=== PATIENT | male | born 1960 | race Hispanic/Latino ===

== ENCOUNTER 2019-01-10 08:02 | Inpatient (IN) | payer OTHER ==
[~2019-01-10] VITALS: Ht 160 cm; Wt 79.4 kg
--- OUTSIDE RECORDS SUMMARY | 2019-01-10 08:06 | XMS REPORT | Clinical Summary ---
Author Author [facility] Organization [place] [facility] Address Unknown Phone Unavailable Care Team Providers Care Fleecer Name Role Phone Asked, No Pcp PCP Unavailable Allergies Comments Active Allergy Reactions Severity Noted Date Penicillins 01/06/2019 Medications No known medications Active Problems Not on file Encounters Care Team Description Date Type Specialty Lui Chen MD Abdominal pain, unspecified abdominal location (Primary Dx); Abnormal CT scan 01/06/2019 Emergency Emergency Medicine 01/06/2019 Travel after 01/09/2018 Social History Date Tobacco Use Types Packs/Day Years Used Never Smoker Smokeless Tobacco: Never Used Alcohol Use Drinks/Week oz/Week Comments No Former drinker. Alcohol Habits Answer Date Recorded How often do you have a drink containing alcohol? Never 01/06/2019 How many drinks containing alcohol do you have on Not asked a typical day when you are drinking? How often do you have six or more drinks on one Not asked occasion? Sex Assigned at Date Recorded Not on file Industry Job Start Date Occupation Not on file Not on file Not on file Travel End Travel History Travel Start No recent travel history available. Last Filed Vital Signs Time Taken Vital Sign Reading 01/06/2019 4:24 PM CDT Blood Pressure 121/95 01/06/2019 4:24 PM CDT Pulse 125 01/06/2019 4:24 PM CDT Temperature 36.8 C (98.2 F) 01/06/2019 4:24 PM CDT Respiratory Rate 18 01/06/2019 4:24 PM CDT Oxygen Saturation 99% - Inhaled Oxygen - Concentration 01/06/2019 9:51 AM CDT Weight 68 kg (150 lb) 01/06/2019 9:51 AM CDT Height 160 cm (5' 3") 01/06/2019 9:51 AM CDT Body Mass Index 26.57 Plan of Treatment Health Maintenance Due Date Last Done Comments COLON CANCER SCREENING 2010 SHINGLES VACCINES (#1) 2010 INFLUENZA VACCINE 05/22/2018 Procedures Comments Procedure Name Priority Date/Time Associated Diagnosis CT ABDOMEN PELVIS W STAT 01/06/2019 CONTRAST 2:13 PM CDT ESTIMATED GFR STAT 01/06/2019 10:43 AM CDT LIPASE LEVEL STAT 01/06/2019 10:43 AM CDT HEPATIC FUNCTION PANEL STAT 01/06/2019 10:43 AM CDT BASIC METABOLIC PANEL STAT 01/06/2019 10:43 AM CDT HC COMPLETE BLD COUNT STAT 01/06/2019 W/AUTO DIFF 10:43 AM CDT after 01/09/2018 Results * CT Abdomen Pelvis W Contrast (01/06/2019 2:13 PM CDT) Narrative Performed At EXAMINATION:CT ABDOMEN PELVIS W CONTRAST [facility] CLINICAL HISTORY:Abd painunspecified, Nauseavomiting TECHNIQUE: Multiple axial images of the abdomen and pelvis were obtained following intravenous administration of iodinated contrast. Sagittal and coronal computerized reformatted images were also obtained. CT imaging was performed with iterative reconstruction technique and/or automated exposure control to reduce radiation dose. COMPARISON:None. FINDINGS: 1.Visualized lung bases are clear. 2.Multiple hepatic dome masses, largest measures up to 3.6 cm, suspicious for metastatic lesions. 3.Normal gallbladder, adrenals. 4.4.2 x 4.9 cm necrotic mass extends from the pancreatic tail to the splenic hilum, favor pancreatic origin. 5.Small ascites. Some ascites along the margins of the spleen appears loculated with mild scalloping of the spleen. Stranding in the omentum, no discrete nodules but question of peritoneal metastatic disease. 6.Normal kidneys with symmetric renal enhancement. 7.Normal stomach and small bowel. Colon is within normal limits. 8.Patulous fat-containing inguinal canals. 9.The bladder is decompressed but otherwise unremarkable. Prostate is within normal limits. 10.No suspicious osseous lesion. 11.Grossly patent abdominal and pelvic vasculature. Wall calcifications in the common femoral and visualized segments of superficial femoral and femoral profunda arteries. 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 [id number] Procedure Note Hm Interface, Radiology Results Incoming - 01/06/2019 2:25 PM CDT EXAMINATION: CT ABDOMEN PELVIS W CONTRAST CLINICAL HISTORY: Abd pain unspecified, Nausea vomiting TECHNIQUE: Multiple axial images of the abdomen and pelvis were obtained following intravenous administration of iodinated contrast. Sagittal and coronal computerized reformatted images were also obtained. CT imaging was performed with iterative reconstruction technique and/or automated exposure control to reduce radiation dose. COMPARISON: None. FINDINGS: 1. Visualized lung bases are clear. 2. Multiple hepatic dome masses, largest measures up to 3.6 cm, suspicious for metastatic lesions. 3. Normal gallbladder, adrenals. 4. 4.2 x 4.9 cm necrotic mass extends from the pancreatic tail to the splenic hilum, favor pancreatic origin. 5. Small ascites. Some ascites along the margins of the spleen appears loculated with mild scalloping of the spleen. Stranding in the omentum, no discrete nodules but question of peritoneal metastatic disease. 6. Normal kidneys with symmetric renal enhancement. 7. Normal stomach and small bowel. Colon is within normal limits. 8. Patulous fat-containing inguinal canals. 9. The bladder is decompressed but otherwise unremarkable. Prostate is within normal limits. 10. No suspicious osseous lesion. 11. Grossly patent abdominal and pelvic vasculature. Wall calcifications in the common femoral and visualized segments of superficial femoral and femoral profunda arteries. 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 [facility]-[id number] Performing Organization Address City/State/Zipcode Phone Number [facility] [address] [place] [address] * Estimated GFR (01/06/2019 10:43 AM CDT) Estimated GFR 73 mL/min/1.73 m2 [facility] Comment: [facility] CatergoryUnitsInte rpretation G1 >=90 Normal or high G2 60-89Mildly decreased U1w34-13 Mildly to moderately decreased A4g03-27 Moderately to severely decreased G4 15-29Severely decreased G5 <15Kidney failure The eGFR was calculated using the Chronic Kidney Disease Epidemiology Collaboration (CKD-EPI) equation. Interpretation is based on recommendations of the National Kidney Foundation-Kidney Disease Outcomes Quality Initiative (NKF-KDOQI) published in 2014. Specimen Plasma specimen Performing Organization Address City/State/Zipcode Phone Number [facility] [address] [place] [address] PATHOLOGY AND GENOMIC MEDICINE [place] [address] [place], [place] [id number] [place] [address] * CBC with platelet and differential (01/06/2019 10:43 AM CDT) WBC 9.8 4.2 - 11.0 k/uL [facility] RBC 4.69 4.04 - 5.86 m/uL [facility] HGB 15.1 13.0 - 17.3 g/dL [facility] HCT 44.2 34.0 - 45.0 % [facility] MCV 94.2 80.0 - 98.0 fL [facility] MCH 32.2 27.0 - 34.0 pg [facility] MCHC 34.2 31.5 - 36.5 g/dL [facility] RDW - SD 38.6 37.0 - 51.0 fL [facility] MPV 9.9 7.4 - 10.4 fL [facility] Platelet count 388 150 - 400 k/uL [facility] Nucleated RBC 0.00 /100 WBC [facility] Neutrophils 75.6 (H) 36.0 - 66.0 % [facility] Lymphocytes 13.1 (L) 24.0 - 44.0 % [facility] Monocytes 9.8 (H) 0.0 - 6.0 % [facility] Eosinophils 0.9 0.0 - 6.0 % [facility] Basophils 0.3 0.0 - 1.2 % [facility] Immature granulocytes 0.3 0.0 - 1.0 % [facility] Specimen Blood Performing Organization Address City/[facility]/Zipcode Phone Number [facility] [address] [place] [address] PATHOLOGY AND GENOMIC MEDICINE [place] [address] [facility] [address] * Lipase level (01/06/2019 10:43 AM CDT) Lipase 50 13 - 60 U/L [facility] Specimen Plasma specimen Performing Organization Address City/[facility] Phone Number [facility] [address] [facility] [place] [address] PATHOLOGY AND GENOMIC MEDICINE [address] * Hepatic function panel (01/06/2019 10:43 AM CDT) Albumin 2.8 (L) 3.5 - 5.0 g/dL [facility] Total bilirubin 0.8 0.2 - 1.2 mg/dL [facility] Bilirubin direct <0.2 0.0 - 0.4 mg/dL [facility] Alkaline phosphatase 88 0 - 129 U/L [facility] Protein 7.6 6.3 - 8.3 g/dL [facility] ALT 14 5 - 50 U/L [facility] AST 21 10 - 50 U/L [facility] Specimen Plasma specimen Performing Organization Address [facility] Hospitalcode Phone Number [facility] [address] [facility] [place] [address] PATHOLOGY AND [facility] [address] * Basic metabolic panel (01/06/2019 10:43 AM CDT) Sodium 128 (L) 135 - 150 mEq/L [facility] Potassium 4.5 3.5 - 5.0 mEq/L [facility] Chloride 92 (L) 98 - 112 mEq/L [facility] CO2 23 (L) 24 - 31 mmol/L [facility] Anion gap 13@ANIO 7 - 15 mEq/L [facility] BUN 18 7 - 18 mg/dL [facility] Creatinine 1.10 0.70 - 1.20 mg/dL [facility] Glucose 364 (H) 65 - 100 mg/dL [facility] Calcium 9.0 8.3 - 10.2 mg/dL [facility] Specimen Plasma specimen Performing Organization Address City/State/Zipcode Phone Number [facility] OF [address] [place] [address] PATHOLOGY AND GENOMIC MEDICINE [facility] [address] [place], [place] [id number] [place] [address] after 01/09/2018 Insurance Payer Benefit Subscriber ID Type Phone Address Plan / Group MISC EXCHANGE AMBETTER xxxxxxxxx Exchange FROM [facility] Advance Directives Patient has advance care planning documents on file. For more information, buster rosado contact: [facility] [address] [place] [address]
[2019-01-10] MEDS ORDERED: MORPHINE SULFATE 2 MG/ML SYR 1ML IV STA (08:51)
[2019-01-10] MEDS ORDERED: ONDANSETRON HCL INJ 2MG/ML 2ML 2 MG/ML VIAL IV STA (08:51)
[2019-01-10] MEDS ORDERED: SODIUM CHLORIDE 0.9% 1000ML 1,000 ML IV SCH ×2 (09:00→10:45)
[2019-01-10] MEDS ORDERED: MORPHINE SULFATE INJ 4 MG/ML INJ 1ML IV NR (09:15)
[2019-01-10] MEDS ORDERED: DIATRIZOATE MEGL/DIATRIZOA SOD 30 ML BTL PO ONE (09:16)
[2019-01-10 09:50] LABS: BASOPHILS % 0.3 % (0.0-1.0); EOSINOPHILS # (AUTO) 0.1 (0.0-0.4); EOSINOPHILS % 0.4 % (0.0-6.0); HEMATOCRIT 43.9 % (38.2-49.6); HEMOGLOBIN 15.3 g/dL (14.0-18.0); LYMPHOCYTES # (AUTO) 1.1 (1.0-3.2); LYMPHOCYTES % 8.9 % (18.0-39.1); MEAN CORPUSCULAR HEMOGLOBIN 32.2 pg (28-32); MEAN CORPUSCULAR HGB CONC 34.9 g/dL (31-35); MEAN CORPUSCULAR VOLUME 92.4 fL (81-99); MONOCYTES # (AUTO) 1.2 (0.2-0.8); MONOCYTES % 9.8 % (4.4-11.3); NEUTROPHILS # (AUTO) 9.4 (2.1-6.9); NEUTROPHILS % 79.9 % (38.7-80.0); PLATELET COUNT 469 x10e3/uL (140-360); RED BLOOD COUNT 4.75 x10e6/uL (4.3-5.7); RED CELL DISTRIBUTION WIDTH 11.2 % (11.7-14.4)
[2019-01-10 09:56] LABS: BILIRUBIN,URINE 2+ (NEGATIVE); CLARITY,URINE SL CLOUDY (CLEAR); COLOR,URINE AMBER (YELLOW); KETONES,URINE NEGATIVE (NEGATIVE); LEUKOCYTE ESTERASE ,URINE NEGATIVE (NEGATIVE); NITRITE,URINE NEGATIVE (NEGATIVE); PROTEIN,URINE DIPSTICK 1+ (NEGATIVE); URINE UROBILINOGEN 0.2 mg/dL (0.2 - 1)
[2019-01-10 10:03] LABS: AMYLASE 55 U/L (25-125); INR 0.99; LIPASE 16 U/L (8-78); PROTHROMBIN TIME 13.6 seconds (11.9-14.5)
[2019-01-10 10:08] LABS: ALANINE AMINOTRANSFERASE 10 IU/L (0-55); ALBUMIN 2.6 g/dL (3.5-5.0); ALBUMIN/GLOBULIN RATIO 0.6 (0.8-2.0); ALKALINE PHOSPHATASE 98 IU/L (40-150); ANION GAP 15.6 mmol/L (8-16); BLOOD UREA NITROGEN 25 mg/dL (7-26); BUN/CREATININE RATIO 22 (6-25); CARBON DIOXIDE 24 mmol/L (22-29); CHLORIDE 90 mmol/L (98-107); CREATININE, SERUM 1.14 mg/dL (0.72-1.25); EST GLOMERULAR FILTRATION RATE > 60 ML/MIN (60-); GLUCOSE 266 mg/dL (74-118); POTASSIUM 5.6 mmol/L (3.5-5.1); SODIUM 124 mmol/L (136-145)
[2019-01-10 10:12] LABS: RBC,URINE 0-5 /HPF (0-5)
[2019-01-10 10:13] LABS: AMORPHOUS SEDIMENT,URINE FEW (FEW); BACTERIA,URINE MANY /HPF; EPITHELIAL CELLS,URINE MODERATE /LPF
[2019-01-10] MEDS ORDERED: SODIUM CHLORIDE 0.9% 50ML 50 ML ONE (10:55)
[2019-01-10] MEDS ORDERED: IOPAMIDOL 370 MG/ML 200 ML INFUS..BTL INJ ONE (10:55)
--- NOTE | 2019-01-10 11:19 | Diagnostic Imaging Report ---
EXAM: CT Abdomen and Pelvis WITH contrast INDICATION: Abdominal Pain COMPARISON: Outside hospital CT abdomen/pelvis 01/06/2019. TECHNIQUE: Abdomen and pelvis were scanned utilizing a multidetector helical scanner from the lung base to the pubic symphysis after administration of IV contrast. Coronal and sagittal reformations were obtained. Routine protocol was performed. Scan was performed during portal venous phase. IV CONTRAST: 100 cc of Isovue-370. COMPLICATIONS: None RADIATION DOSE: Total DLP: 542.9 MGy*cm CTDIvol has been reviewed. It is below the limits set by the Radiation Protocol Committee (RPC). FINDINGS: LINES and TUBES: None. LOWER THORAX: Coronary atherosclerosis. There is a 4 mm likely calcified nodule within the left upper lobe on series 2, image 30. Patchy dependent subsegmental atelectasis in the lower lobes. Trace left pleural effusion. Motion artifact and contrast bolus timing limits evaluation for pulmonary embolism at the lung bases. Apparent filling defect in the left lower lobe segmental pulmonary artery on series 2, image 8 is felt to be artifactual given the absence of visualization on reformats. HEPATOBILIARY: There are multiple hypodense bilateral hepatic lobe lesions. Largest hypodense mass is in the anterior hepatic dome, measuring up to 3.6 cm. Some of the lesions have a lobulated contour. Some of the lesions demonstrate likely peripheral enhancement. No biliary ductal dilation. GALLBLADDER: No radio-opaque stones or sludge. No wall thickening. SPLEEN: No splenomegaly. Extension of the pancreatic mass noted below into the splenic hilum. PANCREAS: There is a 4.9 x 4.2 x 4.5 cm (TV X AP x SI) necrotic mass, likely originating from the pancreatic tail which extends into the splenic hilum. No pancreatic ductal dilatation. ADRENALS: No adrenal nodules KIDNEYS/URETERS: Kidneys enhance symmetrically. No evidence of hydronephrosis, solid mass, or stone. GI TRACT: No evidence of wall thickening or distension. Appendix is normal. PELVIC ORGANS/BLADDER: Unremarkable. LYMPH NODES: There are bilateral anterior diaphragmatic lymph nodes, largest on the left measuring up to 0.9 cm. VESSELS: There are scattered atherosclerotic calcifications in the aorta and branch vessels. PERITONEUM / RETROPERITONEUM: Interval increase in moderate volume ascites. Ascites along the spleen appears loculated with mild splenic scalloping, unchanged. No evidence of free air. Again noted is omental stranding, suspicious for peritoneal metastatic involvement, without discrete nodularity. BONES AND SOFT TISSUES: No acute osseous abnormality. No suspicious lytic or blastic lesions. Fat-containing bilateral inguinal hernias. CONCLUSION: Similar appearance of pancreatic tail mass, suspicious for primary neoplasm with metastatic hepatic lesions, anterior diaphragmatic lymphadenopathy, and peritoneal metastases. Increasing moderate volume ascites. Motion artifact and contrast bolus timing limits evaluation for pulmonary embolism at the lung bases. Apparent filling defect in the left lower lobe segmental pulmonary artery is felt to be artifactual from volume averaging given the absence of visualization on reformats. Signed by: Dr. Prashanth Mosqueda MD on 01/10/2019 11:16 AM
[2019-01-10] MEDS ORDERED: MORPHINE SULFATE 2 MG/ML SYR 1ML IV PRN (12:15)
--- OUTSIDE RECORDS SUMMARY | 2019-01-10 12:51 | XMS REPORT ---
Author Author [facility] Address Unknown Phone Unavailable Care Team Providers Care Medical Insurance Coder Name Role Phone Ghanshyam RICKS Unavailable Unavailable Problems This patient has no known problems. Allergies, Adverse Reactions, Alerts This patient has no known allergies or adverse reactions. Medications This patient has no known medications. Results Test Description Test Time Test Comments Text Results Atomic Results Result Comments CT ABDOMEN/PELVIS W 2019-01-10 10:55:00 [place] [address] Patient Name: JANEE HAIRSTON MR #: [id number] : 1960 Age/Sex: 58/M Req #: [id number] Adm Physician: Ordered by: NICKIE RICKS MD Report #: [id number] Location: ER Room/Bed: Procedure: [id number] CT/CT ABDOMEN/PELVIS W Exam Date: 01/10/19 Exam Time: 1020 REPORT STATUS: Signed EXAM: CT Abdomen and Pelvis WITH contrast INDICATION: Abdominal Pain COMPARISON: Outside hospital CT abdomen/pelvis 01/06/2019. TECHNIQUE: Abdomen and pelvis were scanned utilizing a multidetector helical scanner from the lung base to the pubic symphysis after administration of IV contrast. Coronal and sagittal reformations were obtained. Routine protocol was performed. Scan was performed during portal venous phase. IV CONTRAST: 100 cc of Isovue-370. COMPLICATIONS: None RADIATION DOSE: Total DLP: 542.9 MGy*cm CTDIvol has been reviewed. It is below the limits set by the Radiation Protocol Committee (RPC). FINDINGS: LINES and TUBES: None. LOWER THORAX: Coronary atherosclerosis. There is a 4 mm likely calcified nodule within the left upper lobe on series 2, image 30. Patchy dependent subsegmental atelectasis in the lower lobes. Trace left pleural effusion. Motion artifact and contrast bolus timing limits evaluation for pulmonary embolism at the lung bases. Apparent filling defect in the left lower lobe segmental pulmonary artery on series 2, image 8 is felt to be artifactual given the absence of visualization on reformats. HEPATOBILIARY: There are multiple hypodense bilateral hepatic lobe lesions. Largest hypodense mass is in the anterior hepatic dome, measuring up to 3.6 cm. Some of the lesions have a lobulated contour. Some of the lesions demonstrate likely peripheral enhancement. No biliary ductal dilation. GALLBLADDER: No radio-opaque stones or sludge. No wall thickening. SPLEEN: No splenomegaly. Extension of the pancreatic mass noted below into the splenic hilum. PANCREAS: There is a 4.9 x 4.2 x 4.5 cm (TV X AP x SI) necrotic mass, likely originating from the pancreatic tail which extends into the splenic hilum. No pancreatic ductal dilatation. ADRENALS: No adrenal nodules KIDNEYS/URETERS: Kidneys enhance symmetrically. No evidence of hydronephrosis, solid mass, or stone. GI TRACT: No evidence of wall thickening or distension. Appendix is normal. PELVIC ORGANS/BLADDER: Unremarkable. LYMPH NODES: There are bilateral anterior diaphragmatic lymph nodes, largest on the left measuring up to 0.9 cm. VESSELS: There are scattered atherosclerotic calcifications in the aorta and branch vessels. PERITONEUM / RETROPERITONEUM: Interval increase in moderate volume ascites. Ascites along the spleen appears loculated with mild splenic scalloping, unchanged. No evidence of free air. Again noted is omental stranding, suspicious for peritoneal metastatic involve ment, without discrete nodularity. BONES AND SOFT TISSUES: No acute osseous abnormality. No suspicious lytic or blastic lesions. Fat-containing bilateral inguinal hernias. CONCLUSION: Similar appearance of pancreatic tail mass, suspicious for primary neoplasm with metastatic hepatic lesions, anterior diaphragmatic lymphadenopathy, and peritoneal metastases. Increasing moderate volume ascites. Motion artifact and contrast bolus timing limits evaluation for pulmonary embolism at the lung bases. Apparent filling defect in the left lower lobe segmental pulmonary artery is felt to be artifactual from volume averaging given the absence of visualization on reformats. Signed by: Dr. Magda Jimenez MD on 01/10/2019 11:16 AM Dictated By: MAGDA JIMENEZ MD [id number] Transcribed By: BRII on 01/10/19 111 COPY TO: NICKIE RICKS MD
--- OUTSIDE RECORDS SUMMARY | 2019-01-10 12:51 | XMS REPORT | Clinical Summary ---
Author Author [facility] [facility] Address Unknown Phone Unavailable Care Team Providers Care Legal Word Processor Name Role Phone Asked, No Pcp PCP [...] the liver and question of peritoneal disease. [id number] Procedure Note Hm Interface, Radiology Results Incoming [...] the liver and question of peritoneal disease. [facility]-[id number] Performing Organization Address City/State/Zipcode Phone Number [facility] [address] [place] [address] * Estimated GFR (01/06/2019 10:43 AM CDT) Estimated GFR 73 mL/min/1.73 m2 [facility] Comment: [facility] CatergoryUnitsInte rpretation G1 >=90 Normal or high G2 60-89Mildly decreased D8w08-43 Mildly to moderately decreased A5p91-35 Moderately to severely decreased G4 15-29Severely decreased G5 <15Kidney failure The eGFR was calculated using the Chronic Kidney Disease Epidemiology Collaboration (CKD-EPI) equation. Interpretation is based on recommendations of the National Kidney Foundation-Kidney Disease Outcomes Quality Initiative (NKF-KDOQI) published in 2014. Specimen Plasma specimen Performing Organization Address City/State/Zipcode Phone Number [facility] [address] [place] [address] PATHOLOGY AND GENOMIC MEDICINE [place] [address] [place], [place] [phone] [place] [address] * CBC with platelet and differential (01/06/2019 10:43 AM CDT) WBC 9.8 4.2 - 11.0 k/uL [facility] RBC 4.69 4.04 - 5.86 m/uL [facility] HGB 15.1 13.0 - 17.3 g/dL [facility] HCT 44.2 34.0 - 45.0 % [facility] MCV 94.2 80.0 - 98.0 fL [facility] MCH 32.2 27.0 - 34.0 pg [facility] MCHC 34.2 31.5 - 36.5 g/dL [facility] RDW - SD 38.6 37.0 - 51.0 fL [facility] MPV 9.9 7.4 - 10.4 fL [facility] Platelet count 388 150 - 400 k/uL [facility] Nucleated RBC 0.00 /100 WBC [facility] Neutrophils 75.6 (H) 36.0 - 66.0 % [facility] Lymphocytes 13.1 (L) 24.0 - 44.0 % [facility] Monocytes 9.8 (H) 0.0 - 6.0 % [facility] Eosinophils 0.9 0.0 - 6.0 % [facility] Basophils 0.3 0.0 - 1.2 % [facility] Immature granulocytes 0.3 0.0 - 1.0 % [facility] Specimen Blood Performing Organization Address City/[facility]/Zipcode Phone Number [facility] [address] [place] [address] PATHOLOGY AND GENOMIC MEDICINE [place] [address] [facility] [address] * Lipase level (01/06/2019 10:43 AM CDT) Lipase 50 13 - 60 U/L [facility] Specimen Plasma specimen Performing Organization Address City/[facility] Phone Number [facility] [address] [facility] [place] [address] PATHOLOGY AND GENOMIC MEDICINE [address] [place] * Hepatic function panel (01/06/2019 10:43 AM CDT) Albumin 2.8 (L) 3.5 - 5.0 g/dL [facility] Total bilirubin 0.8 0.2 - 1.2 mg/dL [facility] Bilirubin direct <0.2 0.0 - 0.4 mg/dL [facility] Alkaline phosphatase 88 0 - 129 U/L [facility] Protein 7.6 6.3 - 8.3 g/dL [facility] ALT 14 5 - 50 U/L [facility] AST 21 10 - 50 U/L [facility] Specimen Plasma specimen Performing Organization Address [facility] Phone Number [facility] [address] [facility] [place] [address] PATHOLOGY AND [facility] MEDICINE [address] * Basic metabolic panel (01/06/2019 10:43 AM CDT) Sodium 128 (L) 135 - 150 mEq/L [facility] Potassium 4.5 3.5 - 5.0 mEq/L [facility] Chloride 92 (L) 98 - 112 mEq/L [facility] CO2 23 (L) 24 - 31 mmol/L [facility] Anion gap 13@ANIO 7 - 15 mEq/L [facility] BUN 18 7 - 18 mg/dL [facility] Creatinine 1.10 0.70 - 1.20 mg/dL [facility] Glucose 364 (H) 65 - 100 mg/dL [facility] Calcium 9.0 8.3 - 10.2 mg/dL [facility] Specimen Plasma specimen Performing Organization Address City/State/Zipcode Phone Number [facility] [address] [place] [address] PATHOLOGY AND GENOMIC MEDICINE [facility] [address] [place], [place] [id number] [place] [address] after 01/09/2018 Insurance Payer Benefit Subscriber ID Type Phone Address Plan / Group MISC EXCHANGE AMBETTER xxxxxxxxx Exchange FROM [facility] Advance Directives Patient has advance care planning documents on file. For more information, buster rosado contact: [facility] [address] [place] [address]
--- NOTE | 2019-01-10 13:08 | Diagnostic Imaging Report ---
EXAM: CHEST SINGLE (PORTABLE) DATE: 01/10/2019 11:13 AM INDICATION: Abdominal pain COMPARISON: None FINDINGS: Lines and tubes: None Cardiac silhouette is slightly prominent, accentuated by portable technique and low lung volumes. There is linear atelectasis in the right lower lobe and patchy atelectasis in the left lung base. No other focal pulmonary opacity or pleural effusion or pneumothorax. A small calcified granuloma is seen in the left lower lobe. Upper abdomen unremarkable. No acute bony abnormality. IMPRESSION: Bilateral linear and patchy lower lobe atelectasis with low lung volumes. Signed by: Dr. Cameron Leo M.D. on 01/10/2019 1:05 PM
[2019-01-10] MEDS: ONDANSETRON HCL INJ 2MG/ML 2ML 2 MG/ML VIAL IV PRN ×3 (13:22→21:49)
[2019-01-10] MEDS: SODIUM CHLORIDE 0.9% 1000ML 1,000 ML IV SCH ×2 (13:22→20:44)
[2019-01-10] MEDS: MORPHINE SULFATE INJ 4 MG/ML INJ 1ML IV PRN ×3 (13:22→21:49)
[2019-01-10 13:30] LABS: CREATINE KINASE MB 0.8 ng/mL (0-5.0)
[2019-01-10] MEDS ORDERED: FUROSEMIDE INJ 10 MG/ML 4 ML VIAL IV ONE (13:45)
[2019-01-10] MEDS ORDERED: DEXTROSE 50% SYRINGE 50 ML IV PRN (13:45)
[2019-01-10 13:55] LABS: ALBUMIN 2.7 g/dL (3.5-5.0); BILIRUBIN,DIRECT 0.4 mg/dL (0.0-0.5)
[2019-01-10 14:00] VITALS: BP 123/96
--- NOTE | 2019-01-10 14:00 | NUR ---
PATIENT RECEIVED FROM ER PER STRETCHER. ALERT AND VERBALLY RESPONSIVE. ABLE TO TRANSFER SELF FROM STRETCHER TO BED. SKIN WARM AND DRY TO TOUCH, RESPIRATION EVEN AND UNLABORED. ABDOMEN, LARGE, ROUND, AND DISTENDED. DENIED PAIN AT THIS TIME. YELLOW SOCKS APPLIED, ALL PERSONAL ITEMS CLOSE TO PATIENT. ORIENTED TO SURROUNDINGS, BED IN LOWER POSITION, CALL LIGHT AT REACH. INSTRUCTED TO CALL FOR ASSISTANCE NEEDED. FAMILY AT BED SIDE.
[2019-01-10 15:40] VITALS: BP 123/96
[2019-01-10] MEDS: INSULIN REGULAR, HUMAN 100 UNIT/1 ML 3ML VIAL SQ SCH ×2 (16:30→20:43)
--- NOTE | 2019-01-10 18:06 | NUR ---
PATIENT C/O CONSTIPATION, PRUNE JUICE GIVEN. PATIENT HAD A LARGE BM AND STATED "I AM FEELING BETTER".
[2019-01-10 18:34] LABS: CREATINE KINASE MB 1.2 ng/mL (0-5.0)
--- NOTE | 2019-01-10 19:00 | NUR ---
patient received awake, alert, lying quietly in bed. no c/o pain noted. ivf continue to infuse without difficulty. pm assessment complete. family noted at the bedside. patient/family instructed to call for assistance when needed.
[2019-01-10 20:00] VITALS: BP 125/96
[2019-01-10 20:43] VITALS: BP 125/96
--- NOTE | 2019-01-10 20:59 | NUR ---
bp 125/96 Bj notified. ivf decreased to 75 cc hr. no further orders noted.
[2019-01-11] VITALS (7 sets, daily range): BP systolic 115–128; BP diastolic 87–97
[2019-01-11] MEDS: MORPHINE SULFATE INJ 4 MG/ML INJ 1ML IV PRN ×4 (01:46→17:30)
[2019-01-11] MEDS: ONDANSETRON HCL INJ 2MG/ML 2ML 2 MG/ML VIAL IV PRN ×4 (01:46→17:30)
--- NOTE | 2019-01-11 01:46 | NUR ---
patient medicated with morphine 4 mg and zofran 4 mg ivp for c/o pain and nausa at this time. blood collected for #3 set of cardiac markers and sent to lab. family remains at the bedside.
[2019-01-11 04:15] LABS: CREATINE KINASE MB 1.5 ng/mL (0-5.0)
[2019-01-11 06:22] LABS: BASOPHILS % 0.3 % (0.0-1.0); EOSINOPHILS # (AUTO) 0.1 (0.0-0.4); HEMATOCRIT 42.1 % (38.2-49.6); HEMOGLOBIN 14.4 g/dL (14.0-18.0); LYMPHOCYTES # (AUTO) 1.4 (1.0-3.2); LYMPHOCYTES % 10.8 % (18.0-39.1); MEAN CORPUSCULAR HEMOGLOBIN 31.7 pg (28-32); MEAN CORPUSCULAR HGB CONC 34.2 g/dL (31-35); MEAN CORPUSCULAR VOLUME 92.7 fL (81-99); MONOCYTES # (AUTO) 1.5 (0.2-0.8); MONOCYTES % 11.1 % (4.4-11.3); NEUTROPHILS # (AUTO) 10.1 (2.1-6.9); NEUTROPHILS % 76.3 % (38.7-80.0); PLATELET COUNT 469 x10e3/uL (140-360); RED BLOOD COUNT 4.54 x10e6/uL (4.3-5.7); RED CELL DISTRIBUTION WIDTH 11.3 % (11.7-14.4)
[2019-01-11 06:43] LABS: ANION GAP 14.9 mmol/L (8-16); CALCIUM 9.3 mg/dL (8.4-10.2); CREATININE, SERUM 1.24 mg/dL (0.72-1.25); MAGNESIUM 2.3 MG/DL (1.3-2.1); PHOSPHORUS 5.1 MG/DL (2.3-4.7); POTASSIUM 4.9 mmol/L (3.5-5.1)
--- NOTE | 2019-01-11 06:56 | Diagnostic Imaging Report ---
Examination: Single AP view of the chest. COMPARISON: Portable chest 01/10/2019 INDICATION: Shortness of breath IMPRESSION: 1. No interval change in hypoinflated lungs and bibasilar atelectatic changes. Questionable small bilateral pleural effusions. Signed by: Dr. Eliot Rincon M.D. on 01/11/2019 6:53 AM
--- NOTE | 2019-01-11 07:10 | NUR ---
PATIENT IN BED RESTING WITH NO S/S OF DISCOMFORT. BED IN LOWER POSITION, CALL LIGHT AT REACH.
[2019-01-11] MEDS: INSULIN REGULAR, HUMAN 100 UNIT/1 ML 3ML VIAL SQ SCH ×4 (07:30→20:19)
[2019-01-11] MEDS: SODIUM CHLORIDE 0.9% 1000ML 1,000 ML IV SCH (11:00)
[2019-01-11] MEDS ORDERED: CEFTRIAXONE SOD 1 GM VIAL IV SCH (11:45)
[2019-01-11] MEDS ORDERED: ACETAMINOPHEN 325 MG TAB PO PRN (12:15)
[2019-01-11] MEDS ORDERED: LORAZEPAM INJ 2 MG/ML VIAL IV PRN (12:15)
[2019-01-11] MEDS ORDERED: HYDRALAZINE HCL 20 MG/ML VIAL IV PRN (12:15)
[2019-01-11] MEDS: CEFTRIAXONE SOD 1 GM/NS 50 ML 50 ML IV SCH (12:24)
[2019-01-11] MEDS: FUROSEMIDE INJ 10 MG/ML 4 ML VIAL IV SCH ×2 (12:24→17:36)
--- NOTE | 2019-01-11 15:55 | NUR ---
PATIENT SITTING UP IN BED TALKING TO FAMILY MEMBERS VISITING. NO COMPLAIN VOICED. CALL LIGHT AT REACH.
[2019-01-11] MEDS: FAMOTIDINE 20 MG/2 ML VIAL IV SCH (16:30)
--- NOTE | 2019-01-11 17:33 | Consultation ---
DATE OF CONSULTATION: 01/11/2019 Nephrology Consultation Note REASON FOR CONSULTATION: Hyponatremia. HISTORY OF PRESENT ILLNESS: This is a 58-year-old male with no history of alcohol abuse in the past in which he reports that he quit alcohol about two months ago, recently diagnosed with a pancreatic mass a few weeks ago at [facility] after a CT scan, comes back to the ED with complaints of nausea, vomiting, abdominal pain, and tense ascites. The patient was evaluated at bedside, currently complaining of abdominal pain. He does have tense ascites on examination. His CT scan is for pancreatic mass. He has been seeing Hematology-Oncology as an outpatient and has been consulted while here. Nephrology was consulted for underlying hyponatremia. The patient was found to have a sodium level of 124, currently it is 126. In reviewing his home medications, he is currently not taking anything at home, less likely to cause his underlying hyponatremia, but he does have a pancreatic mass which could be a contributing factor. Also, the patient is a chronic alcohol abuser, beer potomania, as well as decreased electrolytes leading to hyponatremia. be from volume overload as well. The patient was evaluated at bedside, currently doing well with no other issues at this time. REVIEW OF SYSTEMS: Pertinent positives: Abdominal pain, ascites, nausea, vomiting. Pertinent negatives: Denies any chest pain, palpitation, dysuria, hematuria, frequency, urgency, lightheadedness, dizziness, cough, congestion, fever, or any other complaints. Rest of 14-point review of systems are reviewed with the patient and is negative. ALLERGIES: PENICILLIN. HOME MEDICATIONS: None. PAST MEDICAL HISTORY: Recent pancreatic mass diagnosed several weeks ago, alcoholic, and has ascites. PAST SURGICAL HISTORY: None. FAMILY HISTORY: Hypertension, diabetes. SOCIAL HISTORY: He is a chronic drinker, quit two months ago. He is a smoker. No drugs. He is and has children. PHYSICAL EXAMINATION: VITAL SIGNS: Temperature 98, pulse 111, respiratory rate 20, blood pressure 115/88, pulse ox on 94% on room air. GENERAL: No acute distress. Alert and oriented x3. Cooperative on examination. HEENT: Head is normocephalic, atraumatic. Eyes; pupils equal, round and reactive to light bilaterally. Extraocular movements are intact bilaterally. Throat; no evidence of erythema or exudates in the posterior pharynx. Has poor dentition. NECK: Supple. Good range of motion throughout. PULMONARY: Clear to auscultation bilaterally. No wheezing. No rales. No rhonchi. No crackles. CARDIOVASCULAR: Positive S1, S2. No murmurs, rubs, or gallops appreciated. ABDOMEN: Soft, very distended, nontender to palpation. Bowel sounds are present. It is tense. MUSCULOSKELETAL: Strength is 5/5 throughout. . NEUROLOGIC: Cranial nerves II through XII are grossly intact. No evidence of any neurological deficits on exam. SKIN: Intact. Warm to touch. Good cap refill. PSYCHIATRIC: Normal mood and affect. EXTREMITIES: No edema. Good range of motion throughout. LAB FINDINGS: Show white count of 13, hemoglobin 14, hematocrit 42, and platelets of 469. Coagulation; PT 13, INR 0.99. D-dimer was none reported. Chemistries; sodium 126, potassium 4.9, chloride is 94, bicarb 22, anion gap of 14, BUN 29, creatinine is 1.24, and glucose is 189. His phosphorus is 5.1. His magnesium is 2.3. His troponins were all negative. Urinalysis is concerning for UTI. MICROBIOLOGY: Blood cultures negative. Urine culture are pending. IMAGING STUDY: CT abdomen and pelvis is consistent with the pancreatic mass with some lymphadenopathy seen. He does have a significant amount of ascites. Chest x-ray negative. IMPRESSION: 1. Hyponatremia, could be secondary to beer potomania and electrolyte abnormalities and also could be from underlying malignancy. 2. Abdominal pain with tense ascites, likely to be from malignancy. 3. Concern for pancreatic cancer with a pancreatic mass seen on CT. 4. Chronic alcohol abuse. Concern for underlying beer potomania. PLAN: At this time, from a renal standpoint, we will get urine sodium, urine osmolality, serum osmolality. Repeat sodium level at 1700 hours. Lasix has been started due to the tense ascites, which could also contribute an elevated sodium level. We will continue with same plan of care and monitor very closely. From the renal standpoint, we will try to slowly correct the sodium level. I discussed this with the primary team as well. I also told the nurse to call me at with a sodium level to determine if I need to give salt tabs as well. We are also considering giving increased Lasix dose. Thank you too much for this consultation. We will continue to follow with you. MD KENDRA Cisneros/AJNNY /[id number]
--- NOTE | 2019-01-11 18:17 | NUR ---
CASE MANAGEMENT INITIAL ASSESSMENT [facility] Supervisor to bedside to discuss plan of care with patient/family. CM/SW role and care transitions discussed. Anticipated discharge plan discussed along with duration of care. CM/SW discussed patients right to make decisions in care. CM/SW work hours given. Patient lives: Admit/Transfer: ER Hospital/ER visits since last admit:0 POA/Emergency contact: NOLA CORTÉS [phone] Current/Previous Home Health: NONE PCP/Follow-up Care: DR SEVILLA Current/Previous DME: NONE Medications (referring to index hospitalization or the first time you were in the hospital) a. Were changes made in your medications when you were in the hospital on [date of index hospitalization]? Yes No Not sure Explain: Note: If no or not sure, please skip to question d b. Did you understand the changes? Yes No Explain: c. Were you able to obtain your new medications right away? Yes No n/a SNF only Explain: d. Were you able to take your medications like the doctor wanted you to? Yes No Explain: e. Did the hospital give you an accurate, easy to understand list of medications when you left? Yes No n/a SNF only Explain: Scale of 1-10 how comfortable does patient feel with disease management in outpatient settin-3 (SUSPECTING DIAGNOSIS OF CANCER) Other Services: NONE Employment Status: [employer] Areas of Concerns: MISSING WORK Referral Needs: TO BE DETERMINED Education Needs: PENDING DIAGNOSIS IMM/SANCHEZ given and signed (if applicable): N/A Goal for discharge:TO DC HOME WITH FAMILY CM/SW left business card at the bedside with contact information. Name and number was also written on the patients whiteboard. Patient verbalized understanding of discussion. CM will follow-up with ongoing discharge and transition of care needs.
--- NOTE | 2019-01-11 19:15 | NUR ---
patient received awake, alert, lying quietly in bed. respirations even and unlabored. no c/o pain noted. ivf continue to infuse without difficulty. pm assessment complete. family noted at the bedside. patient/family instructed to call for assistance when needed.
--- NOTE | 2019-01-11 19:20 | NUR ---
D Dimer 6.44 called to Rae at this time. stat cta chest ordered.
[2019-01-11] MEDS ORDERED: SODIUM CHLORIDE 1 GM TAB PO ONE (20:00)
--- NOTE | 2019-01-11 20:27 | NUR ---
patient medicated with ativan 0.5 mg ivp for c/o anxiety at this time.
--- NOTE | 2019-01-11 20:29 | Diagnostic Imaging Report ---
EXAMINATION: CT of the chest with contrast, PE protocol. TECHNIQUE: Spiral CT images of the chest were performed from the lung apices through the level of the adrenal glands after the IV administration of 100 cc of Isovue 370. Thin section reconstructions were obtained with special concentration on the pulmonary arteries. COMPARISON: CT abdomen and pelvis 01/10/2019, portable chest 01/11/2019 CLINICAL HISTORY:Elevated d-dimer DISCUSSION: Lungs: No filling defects are identified in the main, right or left pulmonary arteries to their segmental levels, to suggest pulmonary embolism. Interval worsening of bilateral posterior lower lung consolidations with air bronchograms, likely representing atelectatic changes. Stable atelectatic changes in the lingula, right middle lobe is present with atelectatic changes secondary to bilateral eventration of the hemidiaphragms. Stable linear subsegmental atelectasis in the right upper lobe against the minor fissure (series 3, image 35 and sagittal image 30). Calcified granuloma in the lateral left upper lobe. Mildly increased attenuation of the pulmonary parenchyma in the upper lungs (for example series 3, image 27), which are likely secondary to suboptimal inspiration. No pulmonary nodules. Airways: Major airways are clear, without any loculations Pleura: Interval worsening of small bilateral pleural effusions, left greater than right. Heart and mediastinum: Heart size is normal. No pericardial effusion. Ectasia of the ascending aorta, which measures approximately 4.0 x 4.1 cm (series 2, image 38). Main pulmonary artery is normal in caliber. Lymph nodes: No mediastinal, hilar or axillary adenopathy. Abdomen: The visualized portions of the upper abdomen show moderate to large ascites, no change in multiple hypodense lesions in the liver consistent with metastatic disease. An ill-defined 4.9 x 3.5 cm hypodense lesion at the pancreatic tail/ splenic hilum was better visualized on contrast-enhanced CT dated 01/10/2019. Bones and soft tissues: No acute bony abnormalities. Degenerative disc changes in the thoracic spine. IMPRESSION: 1. No CT evidence of pulmonary embolism. 2. Interval worsening of small bilateral pleural effusions, left greater than right. Interval worsening of bilateral posterior lower lung consolidation with air bronchograms, likely representing associated atelectatic changes. Superimposed pneumonia could be considered, in the appropriate clinical setting. 3. Abdominal findings are essentially stable. Please refer to CT abdomen and pelvis with contrast performed 01/10/2019 for further detail. Signed by: Dr. Eliot Rincon M.D. on 01/11/2019 8:25 PM
--- NOTE | 2019-01-11 20:38 | NUR ---
chest cta called to Dr. García at this time. no evidence of PE noted.
[2019-01-11] MEDS: METOPROLOL TARTRATE INJ 1 MG/ML VIAL IV PRN ×2 (22:23→22:47)
--- NOTE | 2019-01-11 22:47 | NUR ---
iv to left ac leaking. iv d/c'd and clean dry dressing applied to site. new #22 gauge placed to left hand x 1 stick. ivf continue to infuse without difficulty.
[2019-01-11] MEDS ORDERED: SODIUM CHLORIDE 0.9% 50ML 50 ML ONE (23:09)
[2019-01-11] MEDS ORDERED: IOPAMIDOL 370 MG/ML 200 ML INFUS..BTL INJ ONE (23:09)
[2019-01-12] VITALS (9 sets, daily range): BP systolic 108–123; BP diastolic 80–98
[2019-01-12] MEDS: ONDANSETRON HCL INJ 2MG/ML 2ML 2 MG/ML VIAL IV PRN ×5 (01:52→23:55)
[2019-01-12] MEDS: MORPHINE SULFATE INJ 4 MG/ML INJ 1ML IV PRN ×5 (01:52→23:55)
[2019-01-12] MEDS: SODIUM CHLORIDE 0.9% 1000ML 1,000 ML IV SCH (02:50)
[2019-01-12 03:21] LABS: BASOPHILS % 0.3 % (0.0-1.0); EOSINOPHILS % 0.2 % (0.0-6.0); HEMATOCRIT 40.7 % (38.2-49.6); HEMOGLOBIN 13.8 g/dL (14.0-18.0); LYMPHOCYTES % 7.6 % (18.0-39.1); MEAN CORPUSCULAR HEMOGLOBIN 31.2 pg (28-32); MEAN CORPUSCULAR HGB CONC 33.9 g/dL (31-35); MEAN CORPUSCULAR VOLUME 92.1 fL (81-99); MONOCYTES # (AUTO) 1.3 (0.2-0.8); NEUTROPHILS # (AUTO) 10.6 (2.1-6.9); NEUTROPHILS % 81.2 % (38.7-80.0); PLATELET COUNT 452 x10e3/uL (140-360); RED BLOOD COUNT 4.42 x10e6/uL (4.3-5.7); RED CELL DISTRIBUTION WIDTH 11.4 % (11.7-14.4)
[2019-01-12 03:38] LABS: ALBUMIN 2.2 g/dL (3.5-5.0); ANION GAP 15.2 mmol/L (8-16); BILIRUBIN,DIRECT 0.5 mg/dL (0.0-0.5); CREATININE, SERUM 1.46 mg/dL (0.72-1.25); MAGNESIUM 2.2 MG/DL (1.3-2.1); POTASSIUM 5.2 mmol/L (3.5-5.1)
[2019-01-12 04:00] LABS: FREE T4 (FREE THYROXINE) 1.11 ng/dL (0.9-1.8); THYROID STIMULATING HORMONE 4.705 uIU/mL (0.350-4.940)
[2019-01-12 04:03] LABS: B-TYPE NATRIURETIC PEPTIDE2 68.1 pg/mL (0-100)
--- NOTE | 2019-01-12 07:05 | NUR ---
PATIENT ASSISTED TO THE RESTROOM AND BACK TO BED. ALL PERSONAL ITEMS CLOSE TO PATIENT . BED IN LOWER POSITION, CALL LIGHT AT REACH.
[2019-01-12] MEDS: INSULIN REGULAR, HUMAN 100 UNIT/1 ML 3ML VIAL SQ SCH ×4 (07:30→20:20)
[2019-01-12] MEDS: FAMOTIDINE 20 MG/2 ML VIAL IV SCH ×2 (07:59→16:30)
[2019-01-12] MEDS: FUROSEMIDE INJ 10 MG/ML 4 ML VIAL IV SCH ×4 (09:13→20:20)
[2019-01-12] MEDS ORDERED: FUROSEMIDE INJ 10 MG/ML 4 ML VIAL IV NR (09:15)
[2019-01-12] MEDS: METOPROLOL TARTRATE INJ 1 MG/ML VIAL IV PRN ×2 (09:41→20:20)
[2019-01-12] MEDS: SODIUM CHLORIDE 1 GM TAB PO SCH ×2 (11:00→17:36)
[2019-01-12 11:29] LABS: BILIRUBIN,URINE NEGATIVE (NEGATIVE); CLARITY,URINE CLEAR (CLEAR); COLOR,URINE YELLOW (YELLOW); KETONES,URINE NEGATIVE (NEGATIVE); LEUKOCYTE ESTERASE ,URINE NEGATIVE (NEGATIVE); NITRITE,URINE NEGATIVE (NEGATIVE); PROTEIN,URINE DIPSTICK TRACE (NEGATIVE); URINE UROBILINOGEN 0.2 mg/dL (0.2 - 1)
--- NOTE | 2019-01-12 11:58 | NUR ---
PATIENT ON 1200CC FLUID RESTRICTION. MEASUREMENT CUP PROVIDED. IN BED WITH CALL LIGHT AT REACH.
--- NOTE | 2019-01-12 12:22 | Progress Note ---
DATE: 01/12/2019 Nephrology Progress Note SUBJECTIVE: The patient still has a tense abdomen, will need paracentesis tomorrow. His sodium only barely deonte to 125. He was started on saline last night. PHYSICAL EXAMINATION: VITAL SIGNS: Temperature is 95.4, pulse is 119, respiratory rate is 22, blood pressure is 119/89, pulse ox is 97% on room air. GENERAL: No acute distress. Alert and oriented x3. Cooperative on examination. HEENT: Head is normocephalic and atraumatic. Eyes; pupils are equal, round, and reactive to light bilaterally. Extraocular movements are intact bilaterally. Throat, no evidence of erythema or exudates in the posterior pharynx. Has poor dentition. NECK: Supple. Good range of motion. PULMONARY: Clear to auscultation bilaterally. No wheezing, no rales, no rhonchi, no crackles appreciated. CARDIOVASCULAR: Positive S1, S2. No murmurs, rubs, or gallops appreciated. ABDOMEN: nontender to palpation. Bowel sounds present. MUSCULOSKELETAL: Strength is 5/5 throughout. No evidence of any muscle deficits on examination. No weakness appreciated. NEUROLOGICAL: Cranial nerves II through XII grossly intact. No evidence of any neurological deficits on exam. SKIN: Intact. Warm to touch. Good cap refill. PSYCHIATRIC: Normal affect and mood. EXTREMITIES: He has trace to 1+ pedal edema. Good range of motion throughout. LAB FINDINGS: Show white count 12.9, hemoglobin 13.2, hematocrit 41, platelets of 452. Chemistry; sodium is 125, potassium is 5.2, chloride 96, bicarb 19, anion gap of 15, BUN 32, creatinine is 1.46, glucose is 185, magnesium is 2.2, calcium is 9. MICROBIOLOGY: Blood cultures are no growth. Sputum cultures are pending. IMAGING STUDIES: There was a CT chest last night with IV contrast, PE protocol. No evidence of pulmonary embolism. Interval worsening of , left greater than right. Interval worsening of bilateral posterior lower lung consolidation pneumonia could be considered. IMPRESSION: 1. Hyponatremia, multifactorial from hypervolemia, beer potomania and possibility of one live malignancy. 2. Abdominal pain with tense ascites, likely to be from malignancy. 3. Acute kidney injury, likely from intraabdominal pressure leading to the rise in creatinine. 4. Concern for pancreatic cancer with a pancreatic mass seen on CT. 5. Chronic alcohol abuse. Concern for beer potomania. PLAN: At this time, his urine studies have not been performed. His urine sodium, urine osmolality, serum osmolality are pending. We will get sodium level at 1700 hours later today. Start on sodium chloride tabs 2 g p.o. b.i.d. x3 doses. Stop normal saline and Lasix due to tense ascites. He will need paracentesis tomorrow. Discussed with nurse to call me today at 1700 hours with sodium level to monitor closely. We will also put volume restriction at 1.2 L total in a day. MD KENDRA Cisneros/MODL /[id number]
[2019-01-12] MEDS: CEFTRIAXONE SOD 1 GM/NS 50 ML 50 ML IV SCH (12:34)
[2019-01-12 12:52] LABS: AMORPHOUS SEDIMENT,URINE MODERATE (FEW); BACTERIA,URINE FEW /HPF; EPITHELIAL CELLS,URINE MODERATE /LPF; MUCUS,URINE FEW (RARE); WBC,URINE (MAN) 0-5 /HPF (0-5)
[2019-01-12 15:40] LABS: ANION GAP 15.2 mmol/L (8-16); CALCIUM 9.1 mg/dL (8.4-10.2); CREATININE, SERUM 1.66 mg/dL (0.72-1.25); POTASSIUM 5.2 mmol/L (3.5-5.1)
--- NOTE | 2019-01-12 16:21 | NUR ---
PATIENT OUT OF BED TO CHAIR TALKING TO FAMILY MEMBER VISITING. CALL LIGHT AT EASY REACH.
--- NOTE | 2019-01-12 17:55 | NUR ---
NOTIFIED OF SODIUM LEVEL, NO NEW ORDER RECEIVED.
--- NOTE | 2019-01-12 18:50 | NUR ---
patient received awake, alert, lying quietly in bed. no c/o pain noted. pm assessment complete. many family members at the bedside. patient/family instructed to call for assistance when needed.
--- NOTE | 2019-01-12 19:15 | NUR ---
patient medicated with morphine 4 mg and zofran 4 mg ivp for abd pain /10 at this time.
--- NOTE | 2019-01-12 21:25 | NUR ---
patient npo after mn for paracentesis and pancreatic mass biopsy in am. consents obtained by daughter per patients request at this time. consents placed on patients chart.
--- NOTE | 2019-01-12 22:24 | NUR ---
patient c/o burning on urination. call placed to Dr. García but received no answer. message left but no return call noted.
--- NOTE | 2019-01-12 23:00 | NUR ---
Dr. Yevgeniy Vallecillo here to see patient. Dr. Yevgeniy Vallecillo made aware of patients burning on urination. pyridium 100 mg po ordered and first dose to be given tonight.
[2019-01-12] MEDS: PHENAZOPYRIDINE HCL 100 MG TAB PO SCH (23:13)
--- NOTE | 2019-01-12 23:55 | NUR ---
patient medicated with morphine 4 mg and zofran 4 mg ivp for c/o abd pain 05/31 at this time.
[2019-01-13] VITALS: BP 128/79
--- NOTE | 2019-01-13 01:00 | NUR ---
return call received from Rae Benitez at this time re: message left earlier about patients c/o burning on urination. order received to recollect urine for ua and culture.
[2019-01-13 04:00] VITALS: BP 114/88
[2019-01-13] MEDS: MORPHINE SULFATE INJ 4 MG/ML INJ 1ML IV PRN ×4 (05:54→23:05)
[2019-01-13] MEDS: ONDANSETRON HCL INJ 2MG/ML 2ML 2 MG/ML VIAL IV PRN ×2 (05:54→23:05)
--- NOTE | 2019-01-13 05:54 | NUR ---
patient oob to shower with assistance and back to bed without difficulty. patient medicated with morphine 4 mg and zofran 4 mg ivp for c/o abd pain 8/ at this time. family remains at the bedside.
[2019-01-13 07:25] VITALS: BP 115/77
[2019-01-13] MEDS: INSULIN REGULAR, HUMAN 100 UNIT/1 ML 3ML VIAL SQ SCH ×4 (07:30→20:43)
--- NOTE | 2019-01-13 07:30 | NUR ---
PT UP IN BED RESTING NO DISTRESS NTOED,DENIES PAIN AT THIS TIME.RADIOLOGY CALLED STATED UNABLE TO DO PANCREAS BIOPSY REQUESTING BIOPSY OF LIVER,SPOKE WITH JULIÁN MONET .CONSENT FOR LIVER BIOPSY DONE
[2019-01-13 07:36] VITALS: BP 115/77
[2019-01-13] MEDS: FAMOTIDINE 20 MG/2 ML VIAL IV SCH ×2 (08:30→18:01)
[2019-01-13] MEDS: SODIUM CHLORIDE 1 GM TAB PO SCH (09:00)
[2019-01-13] MEDS ORDERED: SODIUM CHLORIDE 1 GM TAB PO ONE (11:15)
[2019-01-13 11:58] LABS: ANION GAP 22.2 mmol/L (8-16); CALCIUM 9.8 mg/dL (8.4-10.2); CREATININE, SERUM 1.9 mg/dL (0.72-1.25)
[2019-01-13 12:05] LABS: POTASSIUM 6.2 mmol/L (3.5-5.1)
[2019-01-13] MEDS ORDERED: FUROSEMIDE INJ 10 MG/ML 4 ML VIAL IV ONE (12:15)
[2019-01-13] MEDS ORDERED: SOD POLYSTYRENE SULFONATE SUSP 15 GM/60 ML BTL PO ONE (12:15)
[2019-01-13] MEDS: CEFTRIAXONE SOD 1 GM/NS 50 ML 50 ML IV SCH (12:22)
[2019-01-13] MEDS: PHENAZOPYRIDINE HCL 100 MG TAB PO SCH ×2 (12:38→18:01)
--- NOTE | 2019-01-13 12:45 | NUR ---
SPOKE WITH DR LEE RE;CONSULT
[2019-01-13 12:46] VITALS: BP 115/78
--- NOTE | 2019-01-13 14:15 | NUR ---
DR LEE HERE.PT VOIDED 150 CC ORANGE URINE,POST VOID RESIDUAL [id number] ,SPOKE WITH DR LEE ORDERS TO WAIT UNTIL PT HAS PARACENTSIS AND SCAN AGAIN
[2019-01-13] MEDS ORDERED: GELATIN SPONGE 12-7MM ONE (14:56)
[2019-01-13] MEDS ORDERED: FENTANYL CITRATE/PF 100MCG/2 ML INJ ONE (14:56)
[2019-01-13] MEDS ORDERED: MIDAZOLAM HCL 2 MG/2 ML VIAL ONE (14:56)
--- NOTE | 2019-01-13 15:03 | Progress Note ---
DATE: 01/13/2019 Nephrology Progress Note SUBJECTIVE: The patient is scheduled for paracentesis later today. The patient is otherwise doing well. No other issues. OBJECTIVE: VITAL SIGNS: Temperature is 96.2, pulse 113, respiratory rate 16, blood pressure 115/77, pulse ox 98% on room air. GENERAL: No acute distress. Alert and oriented x3. Cooperative on examination. HEENT: Head is normocephalic, atraumatic. Eyes, pupils are equal, round, and reactive to light bilaterally. Extraocular movements are intact bilaterally. Throat, no evidence of erythema or exudates in the posterior pharynx. Has poor dentition. NECK: Supple. Good range of motion. PULMONARY: Clear to auscultation bilaterally. No wheezing, no rales, no rhonchi, no crackles appreciated. CARDIOVASCULAR: Positive S1, S2. No murmurs, rubs, or gallops appreciated. ABDOMEN: Distended, nontender to palpation. Bowel sounds present. MUSCULOSKELETAL: Strength is 5/5 throughout. No evidence of any muscle deficits on examination. No weakness appreciated. NEUROLOGICAL: Cranial nerves II through XII grossly intact. No evidence of any neurological deficits on exam. SKIN: Intact. Warm to touch. Good cap refill. PSYCHIATRIC: Normal affect and mood. EXTREMITIES: No edema. Good range of motion. LAB FINDINGS: There is no chemistry for today, but yesterday's sodium was 127 at 1700 hours. I ordered chemistries for this month. IMPRESSION: 1. Hyponatremia, multifactorial from hypovolemia, beer potomania and possibly from malignancy. 2. Abdominal pain with tense ascites, likely from malignancy. 3. Acute kidney injury secondary to intraabdominal pressure leading to rise in creatinine. 4. Concern for pancreatic cancer with a pancreatic mass seen on CT. 5. Chronic alcohol abuse. Concern for beer potomania. PLAN: At this time, there is no sodium level for this morning. Sodium yesterday at 1700 was 127. He is written for sodium chloride tab that was given this morning. He continues to be on diuretics as well. We did order some labs for this morning, now stat chemistry. He is scheduled to have paracentesis later today. Labs ordered for tomorrow. Continue with volume restriction at 1.2 L total. MD KENDRA Cisneros/JANNY /[id number]
--- NOTE | 2019-01-13 15:17 | NUR ---
PT TRANSPORTED TO IR VIA BED
--- NOTE | 2019-01-13 16:38 | Consultation ---
DATE OF CONSULTATION: 01/13/2019 REASON OF CONSULTATION: Pancreatic mass and liver lesion. HISTORY OF PRESENT ILLNESS: A 58-year-old male with history of chronic alcoholism, recently stopped, admitted through ED with worsening nausea, vomiting, abdominal pain, and abdominal distention. Here, recent workup shows pancreatic mass at [facility]. So far, the patient has not received any surgical intervention. At admission, the patient's CAT scan showed pancreatic tail mass suspicious of primary neoplasm with metastatic liver lesion, anterior diaphragmatic lymphadenopathy and peritoneum metastasis. The patient also has increased moderate volume ascites. The patient is being following with the Interventional Radiology, supposed to get CT-guided liver biopsy and paracentesis. PAST MEDICAL HISTORY: Include alcoholism, recently diagnosed pancreatic mass. ALLERGIES: PENICILLIN. MEDICATIONS: List reviewed. PAST SURGICAL HISTORY: None. FAMILY HISTORY: Hypertension and diabetes. SOCIAL HISTORY: Chronic drinker, recently stopped. Also smoker. No drugs. Lives with family. REVIEW OF SYSTEMS: A 12-point review as per HPI. PHYSICAL EXAMINATION: GENERAL: Alert, awake, communicative. HEENT: Normocephalic and atraumatic. Sclerae pale. Conjunctivae clear. NECK: Supple. CHEST: Decreased breath sounds in bases. ABDOMEN: Distended. EXTREMITIES: 1+ edema. FIELD CROP GROWER: Intact. LABORATORY DATA AND IMAGING: Reviewed. ASSESSMENT AND PLAN: The patient with history of multiple medical conditions, admitted through emergency with abdominal pain, recently diagnosed pancreatic mass, scheduled for liver biopsy. Likely stage 4 pancreatic cancer with liver mets and peritoneal disease. RECOMMENDATION: To follow pathology report. The patient will benefit with the palliative treatment as outpatient. Continue nutrition support. Continue pain management, paracentesis for ascitics, social support. We will follow the patient closely. The patient and family were discussed in detail. They understand the plan of care. The patient already have outpatient followup appointment. Will follow. MD SHIRA Rock/JANNY /[id number]
[2019-01-13 17:41] LABS: ANION GAP 19.3 mmol/L (8-16); CALCIUM 9.4 mg/dL (8.4-10.2); CREATININE, SERUM 1.98 mg/dL (0.72-1.25); POTASSIUM 5.3 mmol/L (3.5-5.1)
--- NOTE | 2019-01-13 17:57 | NUR ---
SPOKE WITH DR ACEVEDO RE;LAB RESULTS,NO NEW ORDERS
[2019-01-13] MEDS: DOCUSATE SODIUM 100 MG CAP PO SCH (18:00)
--- NOTE | 2019-01-13 19:00 | NUR ---
patient received awake, alert, lying quietly in bed. no c/o pain noted. pm assessment complete. family noted at the bedside. patient/family instructed to call for assistance when needed.
[2019-01-13 20:00] VITALS: BP 111/69
--- NOTE | 2019-01-13 23:05 | NUR ---
patient medicated with morphine 4 mg and zofran 4 mg ivp for abd pain /10 at this time.
--- NOTE | 2019-01-13 23:27 | NUR ---
urine collected per orders and sent to lab.
[2019-01-14] VITALS: BP 97/64
--- NOTE | 2019-01-14 00:03 | Consultation ---
DATE OF CONSULTATION: 01/13/2019 Urology Consultation REASON FOR CONSULTATION: Urinary tract infection. HISTORY OF PRESENT ILLNESS: Vasquez Mai is a 58-year-old man, who has never seen a urologist. He has never had a history of hematuria, dysuria, urinary tract infections, or urolithiasis. He was admitted with swelling of his abdomen and abdominal pain. Urine culture was obtained, which revealed a floral contamination and it was not worked up. Secondary urine culture was sent today and it is listed as "random." The patient is currently being worked up for ascites and abdominal masses, and urological consultation was sought for urinary tract infection. PAST MEDICAL AND SURGICAL HISTORY: 1. Ascites. 2. Pancreatic mass. ALLERGIES: PENICILLIN. CURRENT MEDICATIONS: Please refer to the MAR. FAMILY HISTORY: Noncontributory to the active urological problems. SOCIAL HISTORY: The patient quit drinking 2 months ago after drinking a 12-pack of beer daily for many, many years. He is a smoker. He denies any drugs. He works in maintenance. He is and has a supportive family of 7 people at the bedside at the time of consultation. REVIEW OF SYSTEMS: Consistent with history of present illness and past medical history, otherwise negative for all systems. PHYSICAL EXAMINATION: GENERAL: Very pleasant 58-year-old man, lying in bed, in no apparent distress. VITAL SIGNS: He is currently afebrile. His vital signs are currently stable. ABDOMEN: Distended. It is full of ascitic fluid. There is no obvious hernia. We cannot discern the kidneys. GENITOURINARY: Testes descended bilaterally. Testes and epididymis bilaterally palpably normal. The patient has a normal uncircumcised male phallus with normal meatus without any lesion. Digital rectal examination is deferred at the present time. For the remaining physical examination systems, please refer to the admission history and physical in the chart. LABORATORY STUDIES: Urine culture showed mixed avelina on a clean-catch specimen, a "random" specimen is pending. White blood cell count is elevated at 12,980, hemoglobin slightly low at 13.8, and platelets are normal at 452,000. The patient's sodium is low at 125, potassium is elevated at 6.2, creatinine is elevated at 1.9, which is higher than 1.24 upon admission. Urinalysis showed 11-20 wbc's and many bacteria with moderate epithelial cells. Another urinalysis revealed moderate amorphous sediment. CT scan of the abdomen and pelvis revealed unremarkable kidneys. There was a 4.9 cm necrotic mass with pancreatic tail, which extends into the splenic hilum. Lesions within the liver are suspicious for metastatic disease. Anterior diaphragmatic lymphadenopathy and peritoneal metastases are present. ASSESSMENT: 1. Possible urinary tract infection. 2. Leukocytosis. 3. Anemia. 4. Hyponatremia. 5. Hyperkalemia. 6. Acute renal failure. PLAN: 1. Paracentesis as well as liver biopsies are planned and are pending. 2. We will await the followup urine culture and sensitivity. 3. Unfortunately, I was not called by the emergency room. Based on the urinalysis that the patient's original urine cultures fully worked up. Another specimen has been discarded. 4. Urological followup will be performed. 5. Continue multidisciplinary care and workup as begun. Thank you very much for involving us in the care of your patient. We will be able to follow along with you as well as an outpatient. Elkin Nelson MD [place]/JANNY /[id number]
[2019-01-14 03:25] LABS: BASOPHILS % 0.2 % (0.0-1.0); EOSINOPHILS # (AUTO) 0.1 (0.0-0.4); EOSINOPHILS % 0.4 % (0.0-6.0); HEMATOCRIT 39.3 % (38.2-49.6); HEMOGLOBIN 13.4 g/dL (14.0-18.0); LYMPHOCYTES # (AUTO) 1.1 (1.0-3.2); LYMPHOCYTES % 6.7 % (18.0-39.1); MEAN CORPUSCULAR HEMOGLOBIN 31.6 pg (28-32); MEAN CORPUSCULAR HGB CONC 34.1 g/dL (31-35); MEAN CORPUSCULAR VOLUME 92.7 fL (81-99); MONOCYTES # (AUTO) 1.8 (0.2-0.8); MONOCYTES % 10.3 % (4.4-11.3); NEUTROPHILS # (AUTO) 13.9 (2.1-6.9); NEUTROPHILS % 81.9 % (38.7-80.0); PLATELET COUNT 489 x10e3/uL (140-360); RED BLOOD COUNT 4.24 x10e6/uL (4.3-5.7); RED CELL DISTRIBUTION WIDTH 11.7 % (11.7-14.4)
[2019-01-14 03:48] LABS: ANION GAP 12.2 mmol/L (8-16); CALCIUM 9.2 mg/dL (8.4-10.2); CREATININE, SERUM 1.28 mg/dL (0.72-1.25); MAGNESIUM 2.3 MG/DL (1.3-2.1)
[2019-01-14 03:59] LABS: POTASSIUM 4.2 mmol/L (3.5-5.1)
[2019-01-14 04:00] VITALS: BP 96/66
[2019-01-14] MEDS: ONDANSETRON HCL INJ 2MG/ML 2ML 2 MG/ML VIAL IV PRN (05:00)
[2019-01-14] MEDS: MORPHINE SULFATE INJ 4 MG/ML INJ 1ML IV PRN (05:00)
--- NOTE | 2019-01-14 05:00 | NUR ---
patient oob ambulating in room and back to bed without difficulty. patient medicated with morphine 4 mg and zofran 4 mg ivp for abd pain 6/10 at this time. family remains at the bedside.
--- NOTE | 2019-01-14 07:30 | NUR ---
pt in bed awake pain level 4 to abd
[2019-01-14 07:35] VITALS: BP 104/71
[2019-01-14 07:43] VITALS: BP 104/71
[2019-01-14] MEDS: INSULIN REGULAR, HUMAN 100 UNIT/1 ML 3ML VIAL SQ SCH ×4 (08:00→20:12)
[2019-01-14] MEDS: PHENAZOPYRIDINE HCL 100 MG TAB PO SCH ×3 (08:18→18:00)
[2019-01-14] MEDS: FAMOTIDINE 20 MG/2 ML VIAL IV SCH ×2 (08:18→16:30)
[2019-01-14] MEDS: POLYETHYLENE GLYCOL 3350 17 GM PACK PO SCH (08:18)
[2019-01-14] MEDS: DOCUSATE SODIUM 100 MG CAP PO SCH ×2 (08:18→16:52)
[2019-01-14 09:11] LABS: LYMPHOCYTES % (MANUAL) 10 % (19-48); MONOCYTES % (MANUAL) 5 % (3.4-9.0); NEUTROPHILS % (MANUAL) 85 % (40-74)
[2019-01-14 12:09] VITALS: BP 109/81
[2019-01-14] MEDS ORDERED: BISACODYL 5 MG TAB EC PO ONE (12:30)
--- NOTE | 2019-01-14 14:38 | Progress Note ---
DATE: 01/14/2019 Nephrology Progress Note SUBJECTIVE: The patient had 6.5 L of paracentesis removed yesterday. His vital signs were stable. He has no other concerns at this time. He is tolerating diet well and his abdominal distention has decreased and he denies any abdominal pain. PHYSICAL EXAMINATION: VITAL SIGNS: Temperature is 97.9, pulse 99, respiratory rate 16, blood pressure 104/71, pulse ox 100% on room air. GENERAL: No acute distress. Alert and oriented x3. Cooperative on examination. HEENT: Head is normocephalic, atraumatic. Eyes, pupils are equal, round, and reactive to light bilaterally. Extraocular movements are intact bilaterally. Throat, no evidence of erythema or exudates in the posterior pharynx. Has poor dentition. NECK: Supple. Good range of motion. PULMONARY: Clear to auscultation bilaterally. No wheezing, no rales, no rhonchi, no crackles appreciated. CARDIOVASCULAR: Positive S1, S2. No murmurs, rubs, or gallops appreciated. ABDOMEN: Distended, nontender to palpation. Bowel sounds present. MUSCULOSKELETAL: Strength is 5/5 throughout. No evidence of any muscle deficits on examination. No weakness appreciated. NEUROLOGICAL: Cranial nerves II through XII grossly intact. No evidence of any neurological deficits on exam. SKIN: Intact. Warm to touch. Good cap refill. PSYCHIATRIC: Normal affect and mood. EXTREMITIES: No edema. Good range of motion throughout. LABORATORY DATA: Lab findings show white count increased to 17, hemoglobin 13, hematocrit 39, and platelets of 49. Chemistry; sodium 129, potassium 4.3, chloride 98, bicarb 23, anion gap of 12, BUN is 40, creatinine 4.2, glucose is 86, magnesium 2.3. BNP 58. CA-19-9 109, CEA 18. Cultures: Urine culture positive for enterococcus. Blood cultures were negative. IMAGING STUDIES: CT abdomen is pending. Pancreatic biopsy pending. Paracentesis repeat today is pending. IMPRESSION: 1. Hyponatremia, multifactorial from hypovolemia, also beer potomania and also from underlying malignancy. 2. Abdominal pain with tense ascites, status post paracentesis, 6.5 L removed. 3. Acute kidney injury secondary to intraabdominal pressure leading to the rise in creatinine. 4. Concern for pancreatic cancer with a pancreatic mass seen on CT. 5. Chronic alcohol abuse, possibly beer potomania. PLAN: At this time, sodium was 129. Creatinine is improved after decompression for paracentesis. We will continue with the following restriction as well. No need for any salt tabs. He can continue with Lasix and hold Aldactone as his potassium was elevated as of yesterday. Otherwise, he is scheduled to have paracentesis today with the biopsy of the pancreatic lesion for further evaluation. MD KENDRA Cisneros/MODL /[id number]
--- NOTE | 2019-01-14 15:00 | NUR ---
PT C/O CONSTIOATION MEDICATED.
[2019-01-14] MEDS: HYDROCODONE/APAP 5MG-325MG TAB PO PRN ×2 (15:53→21:41)
--- NOTE | 2019-01-14 16:14 | Diagnostic Imaging Report ---
TECHNIQUE: Limited evaluation of the abdomen. HISTORY: Ascites COMPARISON: CT of the abdomen January 13, 2019 DISCUSSION: The 4 quadrants and midline of the abdomen surveyed. Small volume of abdominal ascites, most notably the right lower quadrant IMPRESSION: Small volume of abdominal ascites. Signed by: Dr. Naren Shelton D.O., M.M.M. on 01/14/2019 4:11 PM
--- NOTE | 2019-01-14 16:25 | NUR ---
Nutrition Screen Note RD Recommendation for Physician: -Continue ADA/ renal diet as ordered Plan of Care: RD following, monitoring for tolerance and adequacy Nutrition reason for involvement: Diagnosis Primary Diagnose(s): 1. Hyponatremia, multifactorial from hypovolemia, also beer potomania and also from underlying malignancy. 2. Abdominal pain with tense ascites, status post paracentesis, 6.5 L removed. 3. Acute kidney injury secondary to intraabdominal pressure leading to the rise in creatinine. 4. Concern for pancreatic cancer with a pancreatic mass seen on CT. PMH: Recent pancreatic mass diagnosed several weeks ago, alcoholic, ascites, DM Ht: 63in Wt: 175lb BMI: 31kg/m2 IBW: 124lb RD Assessment: (01/14) Chart reviewed. Labs and meds reviewed. 58yo M, who was admitted for nausea, vomiting, abdominal pain, and tense ascites. The patient had 6.5 L of paracentesis removed yesterday. CT abdomen is pending. Pancreatic biopsy pending. Paracentesis repeat today is pending. Visited pt in the room. Pt reported good appetite with 75-100% recorded meal intake. No complain of nausea and vomiting. Pt denied any chewing or swallowing difficulty. Unknown weight loss hx due to ascites. Will continue to monitor and follow. Current Diet: renal/ ADA diet Malnutrition Evaluation (01/14) The patient does not meet criteria for a specified degree of malnutrition at this time. Will re-evaluate at follow-up as appropriate. Diet Education Needs Assessment: Diet education not indicated. Nutrition Care Level: low Signed: Lindsey Leiva, MS, RD, LD
[2019-01-14 16:27] LABS: BODY FLUID APPEARANCE SL.CLOUDY; BODY FLUID COLOR YELLOW; BODY FLUID TYPE PERITONEAL
[2019-01-14 16:29] LABS: RBC,BODY FLUID 3148 cells/uL; WBC,BODY FLUID 1030 cells/uL
[2019-01-14 17:36] LABS: LYMPHOCYTES,BODY FLUID 60 %; MONO/MACROPHG,BODY FLUID 31 %; NEUTROPHILS,BODY FLUID 9 %
--- NOTE | 2019-01-14 17:46 | NUR ---
PT UP IN CHAIR NO DISTRESS NTOED,DENIES PAIN
[2019-01-14] MEDS: AMPICILLIN SOD 500 MG in SODIUM CHLORIDE 0.9% 50ML 50 ML IV SCH ×2 (18:00→23:28)
--- NOTE | 2019-01-14 18:50 | NUR ---
patient received awake, alert, sitting up in chair in room. no c/o pain noted at this time. pm assessment complete. patient instructed to call for assistance when needed.
[2019-01-14 20:00] VITALS: BP 98/72
--- NOTE | 2019-01-14 21:41 | NUR ---
patient medicated with norco 5/325 mg po for c/o abd pain 6/10 at this time.
[2019-01-14] MEDS ORDERED: MAGNESIUM HYDROXIDE 30 ML UDC ONE (23:29)
--- NOTE | 2019-01-14 23:29 | NUR ---
patient medicated with milk of mag 30 cc po for c/o constipation at this time.
[2019-01-14] MEDS ORDERED: MAGNESIUM HYDROXIDE 30 ML UDC PO PRN (23:30)
[2019-01-15] VITALS: BP 109/74
--- NOTE | 2019-01-15 03:00 | NUR ---
am labs collected and sent to lab at this time.
[2019-01-15 03:09] LABS: BASOPHILS % 0.2 % (0.0-1.0); EOSINOPHILS # (AUTO) 0.1 (0.0-0.4); EOSINOPHILS % 0.5 % (0.0-6.0); HEMATOCRIT 41.6 % (38.2-49.6); HEMOGLOBIN 14.2 g/dL (14.0-18.0); LYMPHOCYTES # (AUTO) 1.2 (1.0-3.2); LYMPHOCYTES % 6.2 % (18.0-39.1); MEAN CORPUSCULAR HEMOGLOBIN 31.5 pg (28-32); MEAN CORPUSCULAR HGB CONC 34.1 g/dL (31-35); MEAN CORPUSCULAR VOLUME 92.2 fL (81-99); MONOCYTES # (AUTO) 1.9 (0.2-0.8); MONOCYTES % 10.1 % (4.4-11.3); NEUTROPHILS # (AUTO) 15.9 (2.1-6.9); NEUTROPHILS % 82.5 % (38.7-80.0); PLATELET COUNT 430 x10e3/uL (140-360); RED BLOOD COUNT 4.51 x10e6/uL (4.3-5.7); RED CELL DISTRIBUTION WIDTH 11.4 % (11.7-14.4)
[2019-01-15 03:26] LABS: ANION GAP 11.2 mmol/L (8-16); BLOOD UREA NITROGEN 33 mg/dL (7-26); BUN/CREATININE RATIO 33 (6-25); CALCIUM 9.6 mg/dL (8.4-10.2); CARBON DIOXIDE 25 mmol/L (22-29); CHLORIDE 96 mmol/L (98-107); CREATININE, SERUM 1.01 mg/dL (0.72-1.25); EST GLOMERULAR FILTRATION RATE > 60 ML/MIN (60-); GLUCOSE 81 mg/dL (74-118); POTASSIUM 3.2 mmol/L (3.5-5.1); SODIUM 129 mmol/L (136-145)
[2019-01-15 04:00] VITALS: BP 102/77
--- NOTE | 2019-01-15 05:00 | NUR ---
lrg formed stool noted at this time.
[2019-01-15] MEDS: AMPICILLIN SOD 500 MG in SODIUM CHLORIDE 0.9% 50ML 50 ML IV SCH ×3 (05:05→18:31)
[2019-01-15 07:14] LABS: MAGNESIUM 2.6 MG/DL (1.3-2.1)
[2019-01-15 07:20] VITALS: BP 109/83
--- NOTE | 2019-01-15 07:20 | NUR ---
PATIENT AMBULATED TO THE RESTROOM AND BACK TO BED. SITTING AT THE BED SIDE TALKING TO FAMILY MEMBER. CALL LIGHT AT REACH.
[2019-01-15] MEDS: INSULIN REGULAR, HUMAN 100 UNIT/1 ML 3ML VIAL SQ SCH ×4 (07:30→20:11)
--- NOTE | 2019-01-15 07:55 | Diagnostic Imaging Report ---
Date and Time: 01/13/2019 Procedure: Ultrasound-guided paracentesis lens grinding machine operator: Dr. Mccollum Pre-operative diagnosis: Ascites Post-operative diagnosis: Ascites Conscious Sedation: None The patient's heart rate and pulse oximetry were continuously monitored by the interventional radiology nurse. Blood pressure was monitored at 5 minute intervals. Additional Medications: Lidocaine 1% for local anesthesia Blood products administered: None Estimated blood loss: Minimal Specimens: 6900 cc bloody fluid Implants: None Condition at completion: Stable Disposition: To CT scanner Complications: No immediate DISCUSSION: Informed consent was obtained and documented in the medical record. The patient was placed in the supine position on the sonographic table. Preliminary sonographic evaluation of the right upper quadrant of the abdomen showed a suitable percutaneous approach to the moderate ascites. The overlying skin was prepped and draped in the standard sterile fashion. 1% lidocaine was infiltrated into the skin and subcutaneous tissues for local anesthesia. Then under continuous sonographic guidance a 5 Martiniquais Yueh needle catheter was advanced into the peritoneal space. The catheter was advanced off the needle and connected to gravity drainage with subsequent evacuation of 6900 cc bloody fluid. The catheter was removed and a sterile dressing was applied. FINDINGS: Moderate ascites. IMPRESSION: Successful ultrasound-guided paracentesis with removal of 6900 cc bloody fluid. Specimen was submitted for laboratory analysis as well as cytology. Signed by: Dr. Checo Mccollum M.D. on 01/15/2019 7:52 AM
[2019-01-15] MEDS: FAMOTIDINE 20 MG/2 ML VIAL IV SCH ×2 (08:03→16:30)
--- NOTE | 2019-01-15 08:08 | Diagnostic Imaging Report ---
Date and Time: 01/13/2019 Procedure: CT-guided liver mass biopsy, reported spinning mule operator: Dr. Mccollum Pre-operative diagnosis: Pancreatic tail mass, multiple hepatic masses Post-operative diagnosis: Pancreatic tail mass, multiple hepatic masses Conscious Sedation: None The patient's heart rate and pulse oximetry were continuously monitored by the interventional radiology nurse. Blood pressure was monitored at 5 minute intervals. Additional Medications: None Blood products administered: None Estimated blood loss: None Specimens: None Implants: None Complications: No immediate Condition at completion: Stable Disposition: Returned to floor DISCUSSION: Informed consent was obtained and documented in the medical record. After ultrasound-guided paracentesis, separately reported, sonographic evaluation of the liver was performed. Masses high within the right hepatic lobe could not be visualized sonographically due to location and intervening lung. Nodule in the left hepatic lobe could not be resolved sonographically. Therefore, the patient was transferred to the CT scanner. A marker grid was placed over the right upper quadrant of the abdomen. Limited abdominal CT was performed, which showed persistent small volume perihepatic ascites overlying the planned point of access to the right hepatic lobe. The procedure was therefore aborted due to prohibitive bleeding risk from persistent ascites. This was discussed with the patient and his family prior to transfer back to his room. FINDINGS: Persistent perihepatic ascites precluding safe access to the right hepatic lobe for purposes of targeted biopsy. IMPRESSION: Aborted image guided biopsy of a hepatic mass as detailed above. Suggest follow-up on cytology results from ascitic fluid from paracentesis earlier 01/13/2019. Additionally, consideration may be given to upper endoscopy with endoscopic ultrasound for possible targeting of the pancreatic tail mass, which is inaccessible percutaneously due to intervening spleen and left colon. Signed by: Dr. Checo Mccollum M.D. on 01/15/2019 8:05 AM
[2019-01-15] MEDS: POLYETHYLENE GLYCOL 3350 17 GM PACK PO SCH (09:39)
[2019-01-15] MEDS: DOCUSATE SODIUM 100 MG CAP PO SCH ×2 (09:39→17:12)
[2019-01-15] MEDS: PHENAZOPYRIDINE HCL 100 MG TAB PO SCH ×3 (09:39→18:31)
[2019-01-15] MEDS ORDERED: POTASSIUM CHLORIDE 20 MEQ TAB CR PO ONE (10:15)
--- NOTE | 2019-01-15 11:22 | NUR ---
SPOKE WITH MD REGARDING ABNORMAL LAB, NEW ORDER RECEIVED AND IMPLEMENTED.
[2019-01-15] MEDS: HYDROCODONE/APAP 5MG-325MG TAB PO PRN ×2 (11:35→20:10)
[2019-01-15] MEDS ORDERED: AMPICILLIN SOD 500 MG in SODIUM CHLORIDE 0.9% 50ML 50 ML IV SCH (12:00)
[2019-01-15 15:25] VITALS: BP 98/74
--- NOTE | 2019-01-15 16:06 | NUR ---
PATIENT IN BED RESTING WITH EYES CLOSED, NO S/S OF DISCOMFORT NOTED. CALL LIGHT AT REACH.
--- NOTE | 2019-01-15 16:21 | Progress Note ---
DATE: 01/15/2019 Nephrology Progress Note SUBJECTIVE: The patient is doing well. There were no other issues. He was in the process of being discharged, but that now is delayed, he will be discharged tomorrow. PHYSICAL EXAMINATION: VITAL SIGNS: Temperature is 97.6, pulse 113, respiratory rate is 20, blood pressure 102/77, pulse ox 96% on room air. GENERAL: Not in acute distress. Alert and oriented x3. Cooperative on examination. HEENT: Head is normocephalic and atraumatic. Eyes; pupils are equal, round, and reactive to light bilaterally. Extraocular movements are intact bilaterally. Throat, no evidence of erythema or exudates in the posterior pharynx. Has poor dentition. NECK: Supple. Good range of motion. PULMONARY: Clear to auscultation bilaterally. No wheezing, no rales, no rhonchi, no crackles appreciated. CARDIOVASCULAR: Positive S1, S2. No murmurs, rubs, or gallops appreciated. ABDOMEN: Soft, nondistended, and nontender to palpation. Bowel sounds present. MUSCULOSKELETAL: Strength is 5/5 throughout. No evidence of any muscle deficits on examination. No weakness appreciated. NEUROLOGICAL: Cranial nerves 2 through 12 grossly intact. No evidence of any neurological deficits on exam. SKIN: Intact. Warm to touch. Good cap refill. PSYCHIATRIC: Normal affect and mood. EXTREMITIES: No edema. Good range of motion throughout. LAB FINDINGS: Show white count of 19, hemoglobin is 14, hematocrit is 42, and platelets of 430. Chemistry; sodium 129, potassium 3.3, chloride 96, bicarb 25, anion gap 11, BUN 32, creatinine is 1, glucose is 81, magnesium 2.6. Urinalysis repeat is pending. Body fluid cultures so far no growth to date. Urine culture shows Enterococcus. Blood cultures, no growth. IMAGING STUDIES: Abdominal ultrasound shows small volume of abdominal ascites. IMPRESSION: 1. Hyponatremia, multifactorial from hypokalemia, cardiomegaly and underlying malignancy. 2. Abdominal pain with tense ascites, status post paracentesis, 6.5 L removed. Repeat ultrasound shows no evidence of ascites. 3. Acute kidney injury secondary to intraabdominal pressure, resolved. 4. Concern for pancreatic cancer with a pancreatic mass seen on CT. 5. Chronic alcohol abuse, possibly secondary to beer potomania. 6. Hypokalemia, replaced. PLAN: At this time, sodium is 129 and stable. Continue with same plan of care. Replace potassium. Upon discharge, he can go home on Bumex and Aldactone. He did not need a repeat paracentesis based on ultrasound findings. At this time, continue with same plan of care and monitor very closely. MD KENDRA Cisneros/JANNY /[id number]
[2019-01-15 19:28] VITALS: BP 98/74
--- NOTE | 2019-01-15 19:28 | NUR ---
PT IS RESTING IN BED WITH FAMILY AT BEDSIDE. RESPIRATION IS EVEN AND UNLABORED, NO DISTRESS NOTED. BED IN THE LOWEST POSITION, LOCKED, AND CALL LIGHT WITHIN REACH. WILL CONTINUE TO MONITOR.
[2019-01-15 20:00] VITALS: BP 112/79
[2019-01-16] VITALS: BP 100/77
[2019-01-16] MEDS: AMPICILLIN SOD 500 MG in SODIUM CHLORIDE 0.9% 50ML 50 ML IV SCH ×3 (00:15→11:07)
[2019-01-16] MEDS: HYDROCODONE/APAP 5MG-325MG TAB PO PRN ×2 (01:31→07:56)
[2019-01-16 03:55] LABS: BASOPHILS # (AUTO) 0.1 (0.0-0.1); BASOPHILS % 0.2 % (0.0-1.0); EOSINOPHILS # (AUTO) 0.6 (0.0-0.4); EOSINOPHILS % 3.1 % (0.0-6.0); HEMOGLOBIN 14.6 g/dL (14.0-18.0); LYMPHOCYTES # (AUTO) 0.9 (1.0-3.2); LYMPHOCYTES % 4.3 % (18.0-39.1); MEAN CORPUSCULAR HEMOGLOBIN 31.7 pg (28-32); MEAN CORPUSCULAR VOLUME 93.5 fL (81-99); MONOCYTES # (AUTO) 1.8 (0.2-0.8); MONOCYTES % 8.8 % (4.4-11.3); NEUTROPHILS % 82.8 % (38.7-80.0); PLATELET COUNT 452 x10e3/uL (140-360); RED CELL DISTRIBUTION WIDTH 11.7 % (11.7-14.4)
[2019-01-16 04:00] VITALS: BP 93/69
[2019-01-16 04:16] LABS: ANION GAP 13.1 mmol/L (8-16); CALCIUM 9.9 mg/dL (8.4-10.2); CREATININE, SERUM 1.29 mg/dL (0.72-1.25); MAGNESIUM 2.9 MG/DL (1.3-2.1); POTASSIUM 5.1 mmol/L (3.5-5.1)
--- NOTE | 2019-01-16 07:07 | NUR ---
RECEIVED PATIENT RESTING IN BED. NO ACUTE DISTRESS NOTED. FAMILY AT BEDSIDE. CALL LIGHT WITHIN REACH. BED IN THE LOWEST POSITION.
[2019-01-16 07:30] VITALS: BP 104/77
[2019-01-16] MEDS: INSULIN REGULAR, HUMAN 100 UNIT/1 ML 3ML VIAL SQ SCH ×2 (07:30→12:48)
[2019-01-16 07:32] VITALS: BP 104/77
[2019-01-16 07:49] LABS: EOSINOPHILS % (MANUAL) 8 % (0-7); LYMPHOCYTES % (MANUAL) 13 % (19-48); MONOCYTES % (MANUAL) 9 % (3.4-9.0); NEUTROPHILS % (MANUAL) 70 % (40-74)
[2019-01-16 07:50] LABS: PLATELET ESTIMATE ADEQUATE; PLATELET MORPHOLOGY COMMENT FEW LARGE
[2019-01-16 07:51] LABS: POIKILOCYTOSIS SLIGHT; RBC MORPHOLOGY COMMENT NORMAL
[2019-01-16] MEDS ORDERED: MIRALAX17 GM PO (07:57)
[2019-01-16] MEDS ORDERED: HUMULIN R100 UNIT/2 SQ (07:57)
[2019-01-16] MEDS ORDERED: COLACE100 MG PO (07:57)
[2019-01-16] MEDS ORDERED: BUMETANIDE1 MG PO (07:57)
[2019-01-16] MEDS ORDERED: AMOXICILLIN500 MG PO ×2 (07:57→08:23)
[2019-01-16] MEDS ORDERED: ONDANSETRON HCL 4 MG ORAL DISINTEGRATING TAB PO PRN (08:00)
[2019-01-16] MEDS: PHENAZOPYRIDINE HCL 100 MG TAB PO SCH ×2 (08:35→12:44)
[2019-01-16] MEDS: POLYETHYLENE GLYCOL 3350 17 GM PACK PO SCH (08:35)
[2019-01-16] MEDS: DOCUSATE SODIUM 100 MG CAP PO SCH (08:35)
[2019-01-16] MEDS: FAMOTIDINE 20 MG/2 ML VIAL IV SCH (08:35)
[2019-01-16] MEDS: SODIUM CHLORIDE 1 GM TAB PO SCH ×2 (10:11→12:44)
--- NOTE | 2019-01-16 10:20 | NUR ---
PER DR. ACEVEDO, PATIENT IS OK TO DC HOME.
--- NOTE | 2019-01-16 12:17 | NUR ---
PER DR. KRISTINA RAINEY TO GIVE PATIENT THE SECOND DOSE OF SODIUM CHLORIDE BEFORE DISCHARGE.
--- NOTE | 2019-01-16 12:25 | Progress Note ---
DATE: 01/16/2019 Nephrology Progress Note SUBJECTIVE: The patient is in the process of being discharged today. Sodium is 126 and salt, sodium chloride tablet will be given prior to being discharged. He is supposed to be getting a paracentesis later today. PHYSICAL EXAMINATION: VITAL SIGNS: Temperature 95.2, pulse 108, respiratory rate is 18, blood pressure 104/77, and pulse ox is 96% on room air. GENERAL: Not in acute distress. Alert and oriented x3. Cooperative on examination. HEENT: Head is normocephalic and atraumatic. Eyes; pupils are equal, round, and reactive to light bilaterally. Extraocular movements are intact bilaterally. Throat, no evidence of erythema or exudates in the posterior pharynx. Has poor dentition. NECK: Supple. Good range of motion. PULMONARY: Clear to auscultation bilaterally. No wheezing, no rales, no rhonchi, no crackles appreciated. CARDIOVASCULAR: Positive S1, S2. No murmurs, rubs, or gallops appreciated. ABDOMEN: Soft, nondistended, and nontender to palpation. Bowel sounds present. MUSCULOSKELETAL: Strength is 5/5 throughout. No evidence of any muscle deficits on examination. No weakness appreciated. NEUROLOGICAL: Cranial nerves 2 through 12 grossly intact. No evidence of any neurological deficits on exam. SKIN: Intact. Warm to touch. Good cap refill. PSYCHIATRIC: Normal affect and mood. EXTREMITIES: No edema. Good range of motion throughout. LABORATORY DATA: White count 20, hemoglobin 14, hematocrit 43, platelets of 452. Chemistry; sodium 126, potassium 5.1, chloride 96, bicarb 22, anion gap of 13, BUN 38, creatinine is 1.29, magnesium 2.9, calcium is 9.9. IMPRESSION: 1. Hyponatremia, multifactorial from hypokalemia and underlying malignancy. 2. Abdominal pain with tense ascites, status post paracentesis, 6.5 L removed. Repeat abdominal ultrasound shows no evidence of ascites. 3. Acute kidney injury secondary intra-abdominal pressure, resolved. 4. Concern for pancreatic cancer with pancreatic mass on CT. 5. Chronic alcohol abuse secondary to beer potomania. 6. Hypokalemia, replaced. PLAN: At this time, sodium has decreased to 126. We will give salt tabs prior to being discharged while here. He will go home on these. Hold Aldactone . He will likely get paracentesis prior to being discharged. MD KENDRA Cisneros/JANNY /[id number]
--- NOTE | 2019-01-16 12:46 | NUR ---
NOTIFIED JULIÁN SOAP DRIER OPERATOR OF THE 4.6L OF FLUID OUT DURING PARACENTESIS. OK FOR PATIENT TO GO HOME.
[2019-01-16 12:47] VITALS: BP 107/74
--- NOTE | 2019-01-16 12:47 | Diagnostic Imaging Report ---
Procedure: Ultrasound-guided paracentesis, 01/16/2019 at 11:22 AM Pre-operative diagnosis: Ascites Post-operative diagnosis: Ascites Conscious Sedation: None The patient's heart rate and pulse oximetry were continuously monitored by the interventional radiology nurse. Blood pressure was monitored at 5 minute intervals. Additional Medications: Lidocaine 1% for local anesthesia Blood products administered: None Estimated blood loss: Less than 2 cc Specimens: 4,600 cc bloody fluid Implants: None Condition at completion: Stable Disposition: Return to the floor Complications: No immediate DISCUSSION: Informed consent was obtained and documented in the medical record. The patient was placed in the supine position on the sonographic table. Preliminary sonographic evaluation of the right upper quadrant of the abdomen showed a suitable percutaneous approach to the moderate ascites in the right mid lateral abdomen. The overlying skin was prepped and draped in the standard sterile fashion. 1% lidocaine was infiltrated into the skin and subcutaneous tissues for local anesthesia. Then under continuous sonographic guidance a 5 Peruvian Yueh needle-catheter was advanced into the peritoneal space. The catheter was advanced off the needle and connected to gravity drainage with subsequent evacuation of 4,600 cc bloody fluid. The catheter was removed and a sterile dressing was applied. IMPRESSION: Successful ultrasound-guided paracentesis with removal of 4,600 cc bloody fluid. Signed by: Dr. Guillermo Rice DO on 01/16/2019 12:44 PM
--- NOTE | 2019-01-16 15:03 | NUR ---
RECEIVED DC ORDER FROM EMMANUEL GALLEGO. PATIENT IS IN STABLE CONDITION. PAIN AT A TOLERABLE LEVEL AT THIS TIME. IV LINE TO LEFT HAND DC'D WITH TIP INTACT, PRESSURE APPLIED TO SITE, NO BLEEDING NOTED. DISCHARGE TEACHING PROVIDED, PATIENT AND SON BOTH VERBALIZED UNDERSTANDING. DISCHARGE FOLDER, AND PERSONAL ITEMS ON HAND. PATIENT ACCOMPANIED TO PRIVATE AUTO VIA WHEELCHAIR BY STAFF.
[2019-01-16] MEDS ORDERED: FAMOTIDINE 20 MG TAB PO SCH (16:30)
--- NOTE | 2019-01-17 03:09 | Discharge Summary ---
ADMISSION DIAGNOSES: Pancreatic mass with hepatic and peritoneal METS and lymphadenopathy, ascites, hyponatremia, urinary tract infection, thrombocytosis, hypermagnesemia, hyperphosphatemia, hyperglycemia without history of diabetes. DISCHARGE DIAGNOSES: Pancreatic mass with hepatic and peritoneal METS and lymphadenopathy, ascites, hyponatremia, urinary tract infection, thrombocytosis, hypermagnesemia, hyperphosphatemia, hyperglycemia without history of diabetes, hypokalemia, and type 2 diabetes newly diagnosed. HISTORY: None. SURGICAL HISTORY: None. FAMILY HISTORY: The patient's mom had diabetes. The patient's sister had cancer. SOCIAL HISTORY: The patient admits to long-term alcohol use, but quit drinking 2 months ago. He drank about a 12-pack a day for 40 plus years. HOSPITAL COURSE: A 58-year-old male complains of bloating, abdominal pain that was intermittent until Sunday. On Sunday, the pain became constant and was associated with nausea and vomiting. He denies fever, sick contacts, diarrhea, shortness of breath, and cough. The patient had an appointment with IR on Sunday for pancreatic mass biopsy and was following with Dr. Sanchez outpatient. On admission, the patient had a CT of the abdomen that showed similar appearance of pancreatic tail mass suspicious for primary neoplasm with metastatic hepatic lesions, anterior diaphragmatic lymphadenopathy and peritoneal metastases, increasing moderate volume ascites. CT of the chest showed no CT evidence of PE; interval worsening of small bilateral pleural effusions, left greater than right. He then had paracentesis on 01/13 where they pulled off 6.9 L of bloody fluid. We attempted to do a pancreatic mass biopsy, but per IR they were unable to reach it, so we sent the peritoneal fluid for cytology. He then had another paracentesis on 01/16 where they pulled off 4.6 L. We attempted to biopsy the liver instead, but again IR said they could not reach it. 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 His urine culture came back positive for Enterococcus. The patient will discharge home with amoxicillin for 11 more days. Bumex and sliding scale insulin as his A1c was elevated. He will follow up with Dr. Vallecillo, Dr. Sanchez, and primary care in 1-2 weeks. The patient understands discharge instructions and agrees to the plan. Vital signs stable, patient afebrile. Dictated by Rae Benitez NP MD KYLE [place]/JANNY /[id number]
== END 2019-01-16 15:06 | disposition home or self-care (01) | DRG 436 ==
LOC: ER 08:02 → ERHOLD 12:13 → MED/SURG3 13:47
PROVIDERS: ADMIT Internal Medicine; ATTEND Internal Medicine
PROC: 0W9G3ZX Drainage of Peritoneal Cavity, Percutaneous Approach, Diagnostic (ICD-10-PCS; principal; 2019-01-13)
PROC: 0FJ03ZZ Inspection of Liver, Percutaneous Approach (ICD-10-PCS; 2019-01-13)
PROC: 0W9G3ZX Drainage of Peritoneal Cavity, Percutaneous Approach, Diagnostic (ICD-10-PCS; 2019-01-16)
DX: C25.9 Malignant neoplasm of pancreas, unspecified (principal); C78.6 Secondary malignant neoplasm of retroperitoneum and peritoneum; C78.7 Secondary malignant neoplasm of liver and intrahepatic bile duct; E87.1 Hypo-osmolality and hyponatremia; N39.0 Urinary tract infection, site not specified; R18.0 Malignant ascites; C77.1 Secondary and unspecified malignant neoplasm of intrathoracic lymph nodes; N17.9 Acute kidney failure, unspecified; E83.41 Hypermagnesemia; E87.5 Hyperkalemia; F10.20 Alcohol dependence, uncomplicated; N20.9 Urinary calculus, unspecified; D64.9 Anemia, unspecified; I51.7 Cardiomegaly; D47.3 Essential (hemorrhagic) thrombocythemia; E83.39 Other disorders of phosphorus metabolism; E11.65 Type 2 diabetes mellitus with hyperglycemia
CPT/HCPCS: 36415; 49083; 71045; 71260; 74150; 74177; 74470; 76705; 77012; 80048; 80053; 80076; 81001; 82105; 82150; 82378; 82550; 82553; 82948; 83036; 83605; 83690; 83735; 83880; 83930; 83935; 84100; 84295; 84300; 84439; 84443; 84484; 85025; 85379; 85610; 86301; 87040; 87070; 87086; 87186; 87205; 88112; 88305; 89051; 93005; 99284; J0696; J1940; J2060; J2250; J2270; J2405; J7030; Q9967

== ENCOUNTER → 2019-01-22 | Outpatient (CLI) | payer OTHER ==
[~2019-01-22] MED LIST: AMOXICILLIN500 MG PO; BUMETANIDE1 MG PO; COLACE100 MG PO; HUMULIN R100 UNIT/2 SQ; MIRALAX17 GM PO
--- NOTE | 2019-01-22 15:22 | Diagnostic Imaging Report ---
Procedure: Ultrasound-guided therapeutic paracentesis Pre-operative diagnosis: Large volume ascites. Post-operative diagnosis: Resolution of ascites post paracentesis Conscious Sedation: None Additional Medications: Lidocaine 1% for local anesthesia Estimated blood loss: None Specimens: None Implants: None Condition at completion: Stable Disposition: To home. DISCUSSION: Informed consent was obtained and documented in the medical record after discussion of risks and benefits. Preliminary sonographic evaluation confirmed large volume ascites. A suitable percutaneous approach in the right lower abdomen was identified and the overlying skin was prepped and draped in standard sterile fashion. 1% lidocaine was infiltrated into the skin and subcutaneous tissues for local anesthesia. Then under continuous sonographic guidance, a 5 German Yueh needle catheter was advanced into the peritoneal space with removal of 5550 cc of serosanguinous fluid. Post procedural ultrasound demonstrated resolution of ascites. The catheter was removed and a sterile dressing was applied. The patient tolerated the procedure well without immediate complication. IMPRESSION: Ultrasound-guided therapeutic paracentesis with removal of 5550 cc of serosanguinous fluid. Signed by: Dr. Prashanth Mosqueda MD on 01/22/2019 3:18 PM
== END ==
LOC: US 13:37
PROVIDERS: ATTEND Internal Medicine
DX: R18.8 Other ascites (principal)
CPT/HCPCS: 49083